=== PATIENT | male | born 1995 | race Caucasian/White ===

== ENCOUNTER 2017-01-15 14:59 | Emergency (ER) | payer SELFPAY ==
[2017-01-15 15:25] VITALS: BP 131/80
--- NOTE | 2017-01-15 16:30 | ER Document Report ---
HPI - HPI Pain Level: 4 Notes: Patient is a 21-year-old male with a history of pilonidal cyst and recurrent abscesses to the area who presents the ED complaining of another abscess. Patient states that this abscess has been growing over the last couple days and is painful, swollen, and red. He has not noticed any obvious discharge. He has not noticed any obvious streaking. Patient states that it hurts worse when he sitting down. Otherwise he still eating and drinking I difficulties. He is having normal urinations and normal bowel movements. He denies any history of MRSA. Patient states that he has had surgery on the pilonidal cyst in the past , but they are unable to get it all out for patient. Patient states he has an allergy to penicillins. Denies any other significant past medical history. Denies any IV drug use or smoking. Denies any headache, fever, URI, sore throat , chest pain, palpitations, syncope, cough, shortness of breath, wheeze, dyspnea , abdominal pain, nausea/vomiting/diarrhea, urinary retention, dysuria, hematuria, loss of control of bowel or bladder. - ROS Notes: REVIEW OF SYSTEMS: CONSTITUTIONAL : Denies fever, chills, or sweats. Denies recent illness. EENT: Denies eye, ear, throat, or mouth pain or symptoms. Denies nasal or sinus congestion or discharge. Denies throat, tongue, or mouth swelling or difficulty swallowing. CARDIOVASCULAR: Denies chest pain. Denies palpitations or racing or irregular heart beat. Denies ankle edema. RESPIRATORY: Denies cough, cold, or chest congestion. Denies shortness of breath, difficulty breathing, or wheezing. GASTROINTESTINAL: Denies abdominal pain or distention. Denies nausea, vomiting , or diarrhea. Denies blood in vomitus, stools, or per rectum. Denies black, tarry stools. Denies constipation. GENITOURINARY: Denies difficulty urinating, painful urination, burning, frequency, blood in urine, or discharge. MUSCULOSKELETAL: Denies back or neck pain or stiffness. Denies joint pain or swelling. SKIN: see hpi NEUROLOGICAL: Denies confusion or altered mental status. Denies passing out or loss of consciousness. Denies dizziness or lightheadedness. Denies headache. Denies weakness or paralysis or loss of use of either side. Denies problems with gait or speech. Denies sensory loss, numbness, or tingling. ALL OTHER SYSTEMS REVIEWED AND NEGATIVE. Dictation was performed using [employer] voice recognition software - CARDIOVASCULAR Cardiovascular: DENIES: Chest pain - DERM Skin Color: Normal Past Medical History - Social History Smoking Status: Unknown if Ever Smoked Chew tobacco use (# tins/day): No Frequency of alcohol use: Occasional Drug Abuse: None Family History: Reviewed & Not Pertinent Patient has suicidal ideation: No Endocrine Medical History: Reports: Hx Diabetes Mellitus Type 1 Renal/ Medical History: Denies: Hx Peritoneal Dialysis Past Surgical History: Reports: Hx Oral Surgery - wisdom teeth, Hx Tonsillectomy Vertical Provider Document - CONSTITUTIONAL Agree With Documented VS: Yes Notes: PHYSICAL EXAMINATION: GENERAL: Well-appearing, well-nourished and in no acute distress. Vitals during assessment: HR 80 LUNGS: Breath sounds clear to auscultation bilaterally and equal. No wheezes rales or rhonchi. HEART: Regular rate and rhythm without murmurs, rubs, gallops. ABDOMEN: Soft, nontender, nondistended abdomen. No guarding, no rebound. No masses appreciated. Normal bowel sounds present. No CVA tenderness bilaterally. Rectum: + abscess, erythema, induration, and tenderness w/o streaks/discharge to the rt medial buttock. The infected area extends towards the anus. Extremities: No cyanosis, clubbing, or edema b/l. Peripheral pulses 2+. Capillary refill less than 3 seconds. NEUROLOGICAL: Normal speech, normal gait. Normal sensory, motor exams PSYCH: Normal mood, normal affect. SKIN: Warm, Dry, normal turgor, no rashes or lesions noted. - INFECTION CONTROL TRAVEL OUTSIDE OF THE [place] IN LAST 30 DAYS: No - RESPIRATORY O2 Sat by Pulse Oximetry: 100 Course - Re-evaluation Re-evalutation: 01/15/17 16:43 Patient is an afebrile, well-hydrated, 21-year-old male who presents to the ED with a perirectal/pilonidal abscess. Vitals are stable. PE otherwise unremarkable at this time. General surgery was consulted, Dr. Monahan who evaluated the patient. Per general surgeon's recommendations, we will send him home with a prescription for, clindamycin to take 4 times daily 10 days with close follow-up in about 3-5 days with general surgery as he believes this is focused more with the pilonidal cyst than a true perirectal. Dr. Monahan did review these instructions with the patient as well. Conservative measures otherwise for symptoms. Keep consult/schedule an appointment with general surgery for later this week. Recheck with your PCM this week as well. Return to the ED with any worsening/concerning symptoms otherwise as reviewed in discharge. Patient is in agreement. - Vital Signs Vital signs: Temp Pulse Resp BP Pulse Ox 98.8 F 125 H 18 131/80 H 100 01/15/17 15:21 01/15/17 15:21 01/15/17 15:21 01/15/17 15:21 01/15/17 15:21 Discharge - Discharge Clinical Impression: Abscess Condition: Stable Disposition: HOME, SELF-CARE Instructions: Abscess ([facility]), Clindamycin ([facility]) Additional Instructions: Keep the skin clean and wash with soap and water Take antibiotic as directed instruction per the general surgeon otherwise Tylenol/ibuprofen as needed Epson salt soaks may help Call the general surgeon office tomorrow to schedule a follow-up within 5-7 days Recheck with your PCM this week as well Return to the ED with any worsening symptoms and/or development of fever, headache, chest pain, palpitations, syncope, shortness of breath, trouble breathing, abdominal pain, n/v/d, blood in stool/urine, loss of control of bowel /bladder, urinary retention, muscle weakness/paralysis, saddle anesthesia, numbness/tingling, red streaks, discharge, or other worsening symptoms that are concerning to you. Prescriptions: Clindamycin HCl [Cleocin 300 mg Capsule] 300 mg PO QID #40 capsule Forms: Elevated Blood Pressure Referrals: SAM ELLISON MD [ACTIVE STAFF] - Follow up in 3-5 days MENA RUELAS MD [FUR STRETCHER] - Follow up in 3-5 days TORY MONAHAN DO [FUR STRETCHER] - Follow up in 3-5 days
== END 2017-01-15 16:45 | disposition home or self-care (01) ==
LOC: ER 14:59
DX: L02.91 Cutaneous abscess, unspecified (principal); E10.9 Type 1 diabetes mellitus without complications; Z98.890 Other specified postprocedural states
CPT/HCPCS: 99283

== ENCOUNTER 2017-01-16 19:08 | Emergency (ER) | payer SELFPAY ==
[2017-01-16 19:53] VITALS: BP 131/76
--- NOTE | 2017-01-16 20:27 | ER Document Report ---
ED Suture/Wound Recheck - General Chief Complaint: Abscess Recheck Stated Complaint: POSSIBLE ABSCESS Time Seen by Provider: 01/16/17 20:24 Mode of Arrival: Ambulatory Information source: Patient Notes: 20-year-old male presented to ED for recheck his abscess on the coccyx. He states he was seen yesterday and today he had blood running down his leg. TRAVEL OUTSIDE OF THE [place] IN LAST 30 DAYS: No - HPI Previous ED treatment: Pilonidal cyst Antibiotics given previously: Prescription Quality of pain: Throbbing Severity: Severe Pain Level: 5 Symptoms since procedure: Drainage - From his pilonidal cyst Exacerbated by: Sitting, Movement, Walking Relieved by: Denies - Related Data Allergies/Adverse Reactions: acetaminophen [From Vicodin] Allergy (Verified 01/16/17 19:52) Hives hydrocodone [From Vicodin] Allergy (Verified 01/16/17 19:52) Hives ibuprofen Allergy (Verified 01/16/17 19:52) Hives pcn Allergy (Uncoded 01/16/17 19:52) Hives Past Medical History - General Information source: Patient - Social History Smoking Status: Current Every Day Smoker Cigarette use (# per day): Yes Drug Abuse: None Family History: Reviewed & Not Pertinent Patient has suicidal ideation: No Patient has homicidal ideation: No - Past Medical History Cardiac Medical History: Reports: None Pulmonary Medical History: Reports: None EENT Medical History: Reports: None Neurological Medical History: Reports: None Endocrine Medical History: Reports: Hx Diabetes Mellitus Type 1 Renal/ Medical History: Reports: None Malignancy Medical History: Reports None GI Medical History: Reports: None Musculoskeltal Medical History: Reports None Skin Medical History: Reports None Psychiatric Medical History: Reports: None Traumatic Medical History: Reports: None Infectious Medical History: Reports: None Past Surgical History: Reports: Hx Oral Surgery - wisdom teeth, Hx Tonsillectomy Review of Systems - Review of Systems Constitutional: No symptoms reported EENT: No symptoms reported Cardiovascular: No symptoms reported Respiratory: No symptoms reported Gastrointestinal: No symptoms reported Genitourinary: No symptoms reported Male Genitourinary: No symptoms reported Musculoskeletal: No symptoms reported Skin: Other - pilonidal cyst and abscess to cleft draining Hematologic/Lymphatic: No symptoms reported Neurological/Psychological: No symptoms reported -: Yes All other systems reviewed and negative Physical Exam - Vital signs Vitals: Temp Pulse Resp BP Pulse Ox 99.5 F 104 H 20 131/76 H 98 01/16/17 19:52 01/16/17 19:52 01/16/17 19:52 01/16/17 19:52 01/16/17 19:52 Interpretation: Normal - General General appearance: Appears well, Alert - HEENT Head: Normocephalic, Atraumatic Eyes: Normal Pupils: PERRL - Respiratory Respiratory status: No respiratory distress Chest status: Nontender Breath sounds: Normal Chest palpation: Normal - Cardiovascular Rhythm: Regular Heart sounds: Normal auscultation Murmur: No - Abdominal Inspection: Normal Distension: No distension Bowel sounds: Normal Tenderness: Nontender Organomegaly: No organomegaly - Back Back: Normal, Nontender. No: Deformity/step-off, CVA tenderness, Vertebra tenderness, Scars, Scoliosis - Extremities General upper extremity: Normal inspection, Nontender, Normal color, Normal ROM , Normal temperature General lower extremity: Normal inspection, Nontender, Normal color, Normal ROM , Normal temperature, Normal weight bearing. No: River's sign - Neurological Neuro grossly intact: Yes Cognition: Normal Orientation: AAOx4 Susie Coma Scale Eye Opening: Spontaneous Susie Coma Scale Verbal: Oriented [place] Coma Scale Motor: Obeys Commands Susie Coma Scale Total: 15 Speech: Normal Motor strength normal: LUE, RUE, LLE, RLE Sensory: Normal - Psychological Associated symptoms: Normal affect, Normal mood - Skin Skin Temperature: Warm Skin Moisture: Dry Skin Color: Normal Skin irregularity: Abscess Location of irregularity: Other - pilonidal abscess Irregularity with: Swelling, Tenderness, Inflammation, Weeping Course - Re-evaluation Re-evalutation: 01/16/17 21:27 Patient was instructed on care of his pilonidal cyst. He was given pads to wear and mesh panties to protect his clothing. Patient was instructed to continue his antibiotics as ordered to take his Tylenol is ordered and to follow -up with the surgeons as he had previously been ordered. Patient is allergic to ibuprofen and hydrocodone. - Vital Signs Vital signs: Temp Pulse Resp BP Pulse Ox 99.5 F 104 H 20 131/76 H 98 01/16/17 19:52 01/16/17 19:52 01/16/17 19:52 01/16/17 19:52 01/16/17 19:52 Discharge - Discharge Clinical Impression: Pilonidal cyst with abscess Condition: Stable Disposition: HOME, SELF-CARE Additional Instructions: Continue your antibiotics as ordered. Continue using your sitz bath as ordered. Continue taking her Tylenol as ordered. Wear a pad in the your pants due to the drainage from your abscess. Follow-up with the surgeon as you were instructed. FOLLOW-UP CARE: If you have been referred to a physician for follow-up care, call the physician s office for an appointment as you were instructed or within the next two days. If you experience worsening or a significant change in your symptoms, notify the physician immediately or return to the Emergency Department at any time for re-evaluation. Forms: Elevated Blood Pressure, Smoking Cessation Education, Return to Work Referrals: [facility] [Provider Group] - Follow up as needed
== END 2017-01-16 20:38 | disposition home or self-care (01) ==
LOC: ER 19:08
DX: L05.01 Pilonidal cyst with abscess (principal); F17.210 Nicotine dependence, cigarettes, uncomplicated; E10.9 Type 1 diabetes mellitus without complications; Z88.6 Allergy status to analgesic agent; Z88.0 Allergy status to penicillin
CPT/HCPCS: 99282

== ENCOUNTER 2017-03-14 14:38 | Emergency (ER) | payer SELFPAY ==
[2017-03-14 14:47] VITALS: BP 131/90
--- NOTE | 2017-03-14 15:36 | ER Document Report ---
ED General - General Chief Complaint: Medication Refill Stated Complaint: MEDICATION REFILL Time Seen by Provider: 03/14/17 15:32 Mode of Arrival: Ambulatory Information source: Patient Notes: Patient presents stating that he needs help with his insulin pump. He states that he recently moved here and has no insurance. He states that he has no prescription to get the insulin for the pump or for the supplies. He denies any other problems. No nausea no vomiting no diarrhea. No rashes. No fevers. No trouble with urination or bowel movements. TRAVEL OUTSIDE OF THE [place] IN LAST 30 DAYS: No - Related Data Allergies/Adverse Reactions: acetaminophen [From Vicodin] Allergy (Verified 03/14/17 14:43) Hives hydrocodone [From Vicodin] Allergy (Verified 03/14/17 14:43) Hives ibuprofen Allergy (Verified 03/14/17 14:43) Hives pcn Allergy (Uncoded 03/14/17 14:43) Hives Past Medical History - General Information source: Patient - Social History Smoking Status: Current Every Day Smoker Chew tobacco use (# tins/day): No Frequency of alcohol use: Rare Drug Abuse: None Family History: Reviewed & Not Pertinent Patient has suicidal ideation: No Patient has homicidal ideation: No Endocrine Medical History: Reports: Hx Diabetes Mellitus Type 1 Renal/ Medical History: Denies: Hx Peritoneal Dialysis Past Surgical History: Reports: Hx Oral Surgery - wisdom teeth, Hx Tonsillectomy - Immunizations Hx Diphtheria, Pertussis, Tetanus Vaccination: Yes Review of Systems - Review of Systems Constitutional: denies: Chills, Fever Cardiovascular: denies: Chest pain, Palpitations Respiratory: denies: Cough, Short of breath Physical Exam - Vital signs Vitals: Temp Pulse Resp BP Pulse Ox 98.5 F 89 16 131/90 H 100 03/14/17 14:43 03/14/17 14:43 03/14/17 14:43 03/14/17 14:43 03/14/17 14:43 Interpretation: Hypertensive - General General appearance: Appears well, Alert In distress: None - Respiratory Respiratory status: No respiratory distress Chest status: Nontender Breath sounds: Normal Chest palpation: Normal - Cardiovascular Rhythm: Regular Heart sounds: Normal auscultation Murmur: No - Abdominal Inspection: Normal Distension: No distension Bowel sounds: Normal Tenderness: Nontender Organomegaly: No organomegaly - Neurological Neuro grossly intact: Yes Cognition: Normal Orientation: AAOx4 Susie Coma Scale Eye Opening: Spontaneous [place] Coma Scale Verbal: Oriented Susie Coma Scale Motor: Obeys Commands Susie Coma Scale Total: 15 Speech: Normal Motor strength normal: LUE, RUE, LLE, RLE Sensory: Normal - Psychological Associated symptoms: Normal affect, Normal mood - Skin Skin Temperature: Warm Skin Moisture: Dry Skin Color: Normal Course - Re-evaluation Re-evalutation: 03/14/17 15:[address] Lambert at the [facility]. He states that if patient comes over right now he will right prescription for the patient. - Vital Signs Vital signs: Temp Pulse Resp BP Pulse Ox 98.5 F 89 16 131/90 H 100 03/14/17 14:43 03/14/17 14:43 03/14/17 14:43 03/14/17 14:43 03/14/17 14:43 Discharge - Discharge Clinical Impression: Medication refill Condition: Stable Disposition: HOME, SELF-CARE Additional Instructions: Please go straight to the [facility]. Forms: Elevated Blood Pressure
== END 2017-03-14 15:38 | disposition home or self-care (01) ==
LOC: ER 14:38
DX: Z76.0 Encounter for issue of repeat prescription (principal); E10.9 Type 1 diabetes mellitus without complications; Z96.41 Presence of insulin pump (external) (internal); F17.200 Nicotine dependence, unspecified, uncomplicated; Z88.5 Allergy status to narcotic agent; Z88.6 Allergy status to analgesic agent; Z88.0 Allergy status to penicillin
CPT/HCPCS: 99281

== ENCOUNTER → 2017-03-20 | Outpatient (CLI) | payer OTHER ==
[2017-03-20 13:54] LABS: ALANINE AMINOTRANSFERASE 29 U/L (21-72); ALBUMIN 4.4 g/dL (3.5-5.0); ALKALINE PHOSPHATASE 103 U/L (38-126); ANION GAP 15 (5-19); ASPARTATE AMINO TRANSFERASE 19 U/L (17-59); BILIRUBIN,DIRECT 0.3 mg/dL (0.0-0.4); BILIRUBIN,TOTAL 0.5 mg/dL (0.2-1.3); BLOOD UREA NITROGEN 18 mg/dL (7-20); CALCIUM 9.8 mg/dL (8.4-10.2); CARBON DIOXIDE 28 mmol/L (22-30); CHLORIDE 99 mmol/L (98-107); CHOLESTEROL 172.75 mg/dL (0-200); CREATININE RESULT 0.62 mg/dL (0.52-1.25); Direct HDL 44 mg/dL (>40); GLUCOSE 177 mg/dL (75-110); POTASSIUM 4.4 mmol/L (3.6-5.0); SODIUM 141.6 mmol/L (137-145); TOTAL PROTEIN 7.2 g/dL (6.3-8.2); TRIGLYCERIDES 125 mg/dL (<150)
[2017-03-20 14:04] LABS: DIRECT LDL 110 mg/dL (<100)
== END ==
LOC: CCC 12:05
DX: E10.8 Type 1 diabetes mellitus with unspecified complications (principal)
CPT/HCPCS: 36415; 80053; 80061; 83036

== ENCOUNTER 2017-05-24 19:35 | Emergency (ER) | payer SELFPAY ==
[2017-05-24] MEDS ORDERED: NORMAL SALINE 1000 ML 1,000 ML IV ONE ×2 (19:51→22:16)
--- NOTE | 2017-05-24 19:54 | ER Document Report ---
ED Medical Screen (RME) - General Chief Complaint: High Blood Sugar Stated Complaint: BLOOD SUGAR ISSUES Time Seen by Provider: 05/24/17 19:51 Mode of Arrival: Ambulatory Information source: Patient Notes: Patient is a known insulin-dependent diabetic who reports that his blood sugar has been reading high this evening. Patient is on a home insulin pump that sets automatically and he is uncertain what the settings are at this time. Patient does complain of some chest pain but denies any cough or cold symptoms. Patient denies any fever, nausea, vomiting or diarrhea. hx: Diabetes, asthma TRAVEL OUTSIDE OF THE [place] IN LAST 30 DAYS: No - Related Data Allergies/Adverse Reactions: acetaminophen [From Vicodin] Allergy (Verified 05/24/17 19:39) Hives hydrocodone [From Vicodin] Allergy (Verified 05/24/17 19:39) Hives ibuprofen Allergy (Verified 05/24/17 19:39) Hives pcn Allergy (Uncoded 05/24/17 19:39) Hives Past Medical History Endocrine Medical History: Reports: Hx Diabetes Mellitus Type 1 Renal/ Medical History: Denies: Hx Peritoneal Dialysis Past Surgical History: Reports: Hx Oral Surgery - wisdom teeth, Hx Tonsillectomy - Immunizations Hx Diphtheria, Pertussis, Tetanus Vaccination: Yes Physical Exam - Respiratory Respiratory status: No respiratory distress Chest status: Tender Breath sounds: No: Nonproductive cough, Productive cough
--- NOTE | 2017-05-24 20:48 | RADIOLOGY REPORT (SQ) ---
EXAM DESCRIPTION: CHEST PA/LAT COMPLETED DATE/TIME: 05/24/2017 8:34 pm REASON FOR STUDY: cp COMPARISON: None. EXAM PARAMETERS: NUMBER OF VIEWS: two views TECHNIQUE: Digital Frontal and Lateral radiographic views of the chest acquired. RADIATION DOSE: NA LIMITATIONS: none FINDINGS: LUNGS AND PLEURA: No opacities, masses or pneumothorax. No pleural effusion. MEDIASTINUM AND HILAR STRUCTURES: No masses or contour abnormalities. HEART AND VASCULAR STRUCTURES: Heart normal size. No evidence for failure. BONES: No acute findings. HARDWARE: None in the chest. OTHER: No other significant finding. IMPRESSION: NO SIGNIFICANT RADIOGRAPHIC FINDING IN THE CHEST. TECHNICAL DOCUMENTATION: JOB ID: [id number] [place]-[id number] 2010 [employer]- All Rights Reserved
[2017-05-24 21:27] LABS: ABSOLUTE EOSINOPHILS # (AUTO) 0.3 10^3/uL (0.0-0.6); ABSOLUTE LYMPHOCYTES (AUTO) 2.1 10^3/uL (0.5-4.7); ABSOLUTE MONOCYTES (AUTO) 0.4 10^3/uL (0.1-1.4); ABSOLUTE NEUT (AUTO) 5.7 10^3/uL (1.7-8.2); BASOPHILS % (AUTO) 0.3 % (0-2); HEMATOCRIT 42.9 % (37.9-51.0); HEMOGLOBIN 14.8 g/dL (13.5-17.0); LYMPHOCYTES % (AUTO) 24.2 % (13-45); MEAN CORPUSCULAR HGB CONC 34.5 g/dL (32.0-36.0); MEAN CORPUSCULAR VOLUME 93 fl (80-97); PLATELET COUNT 186 10^3/uL (150-450); RED BLOOD COUNT 4.62 10^6/uL (4.35-5.55); SEGMENTED NEUTROPHILS % (AUTO) 66.5 % (42-78); TOTAL CELLS COUNTED % (AUTO) 100 %; WHITE BLOOD COUNT 8.6 10^3/uL (4.0-10.5)
[2017-05-24 21:33] LABS: VENOUS BLOOD BASE EXCESS 3.8 mmol/L; VENOUS BLOOD HCO3 30.3 mmol/L (20-32); VENOUS BLOOD PCO2 52.9 mmHg (35-63); VENOUS BLOOD PH 7.38 (7.30-7.42)
[2017-05-24 21:33] LABS: APPEARANCE,URINE CLEAR; BILIRUBIN,URINE NEGATIVE (NEGATIVE); COLOR,URINE COLORLESS; GLUCOSE, URINE >=500 mg/dL (NEGATIVE); KETONES,URINE TRACE mg/dL (NEGATIVE); LEUKOCYTE ESTERASE,URINE NEGATIVE (NEGATIVE); NITRITE,URINE NEGATIVE (NEGATIVE); PROTEIN,URINE NEGATIVE (NEGATIVE); URINE SPECIFIC GRAVITY 1.024; UROBILINOGEN,URINE NEGATIVE mg/dL (<2.0)
[2017-05-24 21:51] LABS: ALANINE AMINOTRANSFERASE 27 U/L (21-72); ALBUMIN 4.4 g/dL (3.5-5.0); ALKALINE PHOSPHATASE 128 U/L (38-126); ANION GAP 11 (5-19); ASPARTATE AMINO TRANSFERASE 19 U/L (17-59); BILIRUBIN,DIRECT 0.2 mg/dL (0.0-0.4); BILIRUBIN,TOTAL 0.5 mg/dL (0.2-1.3); BLOOD UREA NITROGEN 17 mg/dL (7-20); CALCIUM 9.7 mg/dL (8.4-10.2); CARBON DIOXIDE 29 mmol/L (22-30); CHLORIDE 92 mmol/L (98-107); LIPASE 36.6 U/L (23-300); POTASSIUM 4.3 mmol/L (3.6-5.0); SODIUM 132.1 mmol/L (137-145); TOTAL PROTEIN 7.2 g/dL (6.3-8.2)
[2017-05-24 22:01] LABS: GLUCOSE 618 mg/dL (75-110)
[2017-05-25 00:50] VITALS: BP 122/78
--- NOTE | 2017-05-25 00:57 | ER Document Report ---
ED Blood Sugar Problem - General Chief Complaint: High Blood Sugar Stated Complaint: BLOOD SUGAR ISSUES Time Seen by Provider: 05/24/17 19:51 Mode of Arrival: Ambulatory Notes: Patient is a 21 year old known insulin-dependent diabetic who reports that his blood sugar has been reading high this evening. Patient is on a home insulin pump that sets automatically and he is uncertain what the settings are at this time. He has checked the battery and it is recent and not low. Patient states that he actually moved his pump to a new location early today (he does this intermittently), he is unsure if this was the issue. Patient states that he has received 2 bags of IV fluids now, states that he felt lightheaded and strange sensation in his chest earlier but now he feels fine. He denies any nausea or vomiting today. He states last time he was hospitalized for DKA was so many years ago he is not even sure what it was. He is new to the area but he is established with a primary care provider. TRAVEL OUTSIDE OF THE [place] IN LAST 30 DAYS: No - Related Data Allergies/Adverse Reactions: acetaminophen [From Vicodin] Allergy (Verified 05/24/17 19:39) Hives hydrocodone [From Vicodin] Allergy (Verified 05/24/17 19:39) Hives ibuprofen Allergy (Verified 05/24/17 19:39) Hives pcn Allergy (Uncoded 05/24/17 19:39) Hives Past Medical History - General Information source: Patient - Social History Smoking Status: Current Every Day Smoker Frequency of alcohol use: None Drug Abuse: None Family History: Reviewed & Not Pertinent Patient has suicidal ideation: No Patient has homicidal ideation: No Endocrine Medical History: Reports: Hx Diabetes Mellitus Type 1 Renal/ Medical History: Denies: Hx Peritoneal Dialysis Past Surgical History: Reports: Hx Oral Surgery - wisdom teeth, Hx Tonsillectomy - Immunizations Hx Diphtheria, Pertussis, Tetanus Vaccination: Yes Review of Systems - Review of Systems Constitutional: See HPI EENT: No symptoms reported Cardiovascular: No symptoms reported Respiratory: No symptoms reported Gastrointestinal: No symptoms reported Genitourinary: No symptoms reported Male Genitourinary: No symptoms reported Musculoskeletal: No symptoms reported Skin: No symptoms reported Hematologic/Lymphatic: No symptoms reported Neurological/Psychological: No symptoms reported Physical Exam - Vital signs Vitals: Temp Pulse Resp BP Pulse Ox 98.0 F 92 18 130/80 H 100 05/24/17 19:52 05/24/17 19:52 05/24/17 19:52 05/24/17 19:52 05/24/17 19:52 Interpretation: Normal - General General appearance: Appears well, Alert In distress: None - HEENT Head: Normocephalic, Atraumatic Eyes: Normal Pupils: PERRL - Respiratory Respiratory status: No respiratory distress Chest status: Nontender Breath sounds: Normal Chest palpation: Normal - Cardiovascular Rhythm: Regular Heart sounds: Normal auscultation Murmur: No - Abdominal Inspection: Other - Insulin pump in place in the right lower abdomen Distension: No distension Bowel sounds: Normal Tenderness: Nontender Organomegaly: No organomegaly - Back Back: Normal, Nontender - Extremities General upper extremity: Normal inspection, Nontender, Normal color, Normal ROM , Normal temperature General lower extremity: Normal inspection, Nontender, Normal color, Normal ROM , Normal temperature, Normal weight bearing. No: River's sign - Neurological Neuro grossly intact: Yes Cognition: Normal Orientation: AAOx4 Susie Coma Scale Eye Opening: Spontaneous [place] Coma Scale Verbal: Oriented Susie Coma Scale Motor: Obeys Commands Susie Coma Scale Total: 15 Speech: Normal Motor strength normal: LUE, RUE, LLE, RLE Sensory: Normal - Psychological Associated symptoms: Normal affect, Normal mood - Skin Skin Temperature: Warm Skin Moisture: Dry Skin Color: Normal Course - Re-evaluation Re-evalutation: CBC unremarkable, chemistry shows normal anion gap, normal bicarbonate, venous blood gas does not show acidosis. Patient has not been given insulin here, I checked his pump, it is in place, and appears to be infusing insulin. Patient was given 2 IV fluid boluses. Blood sugar downtrending dramatically. Pump definitely appears to be working. Patient is very happy with this. Offered him food, patient is very familiar with his pump and is a very well-controlled diabetic, he states he will follow- up with primary care and return if he worsens. - Vital Signs Vital signs: Temp Pulse Resp BP Pulse Ox 98.6 F 78 16 122/78 100 05/25/17 00:49 05/25/17 00:49 05/25/17 00:49 05/25/17 00:49 05/25/17 00:49 - Laboratory Result Diagrams: 05/24/17 20:55 05/24/17 20:55 Laboratory results interpreted by me: 05/24/17 05/24/17 05/24/17 20:45 20:55 22:39 Sodium 132.1 L Chloride 92 L Glucose 618 H* POC Glucose 417 H* Alkaline Phosphatase 128 H Urine Glucose (UA) >=500 H Urine Ketones TRACE H 05/25/17 00:43 Sodium Chloride Glucose POC Glucose 114 H Alkaline Phosphatase Urine Glucose (UA) Urine Ketones Discharge - Discharge Clinical Impression: Hyperglycemia due to type 1 diabetes mellitus Condition: Stable Disposition: HOME, SELF-CARE Additional Instructions: No evidence of diabetic ketoacidosis is seen on your evaluation today. Continue rehydration, your pump appears to be working again. Follow-up with primary care. Return for any concerning or worsening symptoms including lightheadedness, vomiting, or any other concerning symptoms. Forms: Return to Work
== END 2017-05-25 01:05 | disposition home or self-care (01) ==
LOC: ER 19:35
DX: E10.65 Type 1 diabetes mellitus with hyperglycemia (principal); Z79.4 Long term (current) use of insulin; R42 Dizziness and giddiness; F17.200 Nicotine dependence, unspecified, uncomplicated
CPT/HCPCS: 99285; 96360; 96361; 36415; 82962; 83690; 85025; 80053; 81001; 82803; 71046; J7030

== ENCOUNTER 2017-06-01 18:52 | Observation (INO) | payer BC ==
--- NOTE | 2017-06-01 20:19 | ER Document Report ---
ED Medical Screen (RME) - General Chief Complaint: Abscess Stated Complaint: BUTTOCKS PAIN Time Seen by Provider: 06/01/17 20:18 Mode of Arrival: Ambulatory Information source: Patient Notes: Patient is a 21-year-old male diabetic who presents to the ER today for a pilonidal cyst. Patient states he has had a surgically drained before and is here to get it drained again today. He states this was started about a week ago. He states it is hard and painful and he cannot sit down. TRAVEL OUTSIDE OF THE [place] IN LAST 30 DAYS: No - Related Data Allergies/Adverse Reactions: acetaminophen [From Vicodin] Allergy (Verified 05/24/17 19:39) Hives hydrocodone [From Vicodin] Allergy (Verified 05/24/17 19:39) Hives ibuprofen Allergy (Verified 05/24/17 19:39) Hives pcn Allergy (Uncoded 05/24/17 19:39) Hives Past Medical History - General Information source: Patient - Social History Chew tobacco use (# tins/day): No Frequency of alcohol use: None Drug Abuse: None Endocrine Medical History: Reports: Hx Diabetes Mellitus Type 1 Renal/ Medical History: Denies: Hx Peritoneal Dialysis Past Surgical History: Reports: Hx Oral Surgery - wisdom teeth, Hx Tonsillectomy - Immunizations Hx Diphtheria, Pertussis, Tetanus Vaccination: Yes Review of Systems - Review of Systems Skin: See HPI Physical Exam - Vital signs Vitals: Temp Pulse Resp BP Pulse Ox 99.4 F 114 H 19 146/78 H 99 06/01/17 19:22 06/01/17 19:22 06/01/17 19:22 06/01/17 19:22 06/01/17 19:22 - Notes Notes: PHYSICAL EXAMINATION: GENERAL: Uncomfortable appearing, will not sit down, but in no acute distress. Course - Vital Signs Vital signs: Temp Pulse Resp BP Pulse Ox 99.4 F 114 H 19 146/78 H 99 06/01/17 19:22 06/01/17 19:22 06/01/17 19:22 06/01/17 19:22 06/01/17 19:22
[2017-06-01 21:21] LABS: ABSOLUTE EOSINOPHILS # (AUTO) 0.4 10^3/uL (0.0-0.6); ABSOLUTE LYMPHOCYTES (AUTO) 1.6 10^3/uL (0.5-4.7); ABSOLUTE MONOCYTES (AUTO) 0.7 10^3/uL (0.1-1.4); ABSOLUTE NEUT (AUTO) 8.8 10^3/uL (1.7-8.2); BASOPHILS % (AUTO) 0.1 % (0-2); EOSINOPHILS % (AUTO) 3.7 % (0-6); HEMATOCRIT 41.1 % (37.9-51.0); HEMOGLOBIN 14.2 g/dL (13.5-17.0); LYMPHOCYTES % (AUTO) 14.3 % (13-45); MEAN CORPUSCULAR HEMOGLOBIN 32.1 pg (27.0-33.4); MEAN CORPUSCULAR HGB CONC 34.6 g/dL (32.0-36.0); MEAN CORPUSCULAR VOLUME 93 fl (80-97); MONOCYTES % (AUTO) 5.9 % (3-13); PLATELET COUNT 218 10^3/uL (150-450); RED BLOOD COUNT 4.44 10^6/uL (4.35-5.55); RED CELL DISTRIBUTION WIDTH 13.3 % (11.5-14.0); TOTAL CELLS COUNTED % (AUTO) 100 %; WHITE BLOOD COUNT 11.5 10^3/uL (4.0-10.5)
[2017-06-01 21:42] LABS: ALANINE AMINOTRANSFERASE 31 U/L (21-72); ALBUMIN 4.4 g/dL (3.5-5.0); ALKALINE PHOSPHATASE 116 U/L (38-126); ANION GAP 11 (5-19); ASPARTATE AMINO TRANSFERASE 19 U/L (17-59); BILIRUBIN,DIRECT 0.4 mg/dL (0.0-0.4); BILIRUBIN,TOTAL 0.4 mg/dL (0.2-1.3); BLOOD UREA NITROGEN 13 mg/dL (7-20); CALCIUM 10.1 mg/dL (8.4-10.2); CARBON DIOXIDE 29 mmol/L (22-30); CHLORIDE 99 mmol/L (98-107); GLUCOSE 298 mg/dL (75-110); POTASSIUM 4.3 mmol/L (3.6-5.0); SODIUM 139.4 mmol/L (137-145); TOTAL PROTEIN 7.4 g/dL (6.3-8.2)
[2017-06-01] MEDS ORDERED: LIDOCAINE 1% INJ-PF (10 MG/ML) 30 ML SDV INJ ONE (22:11)
[2017-06-01] MEDS ORDERED: ONDANSETRON 4 MG TAB.RAPDIS PO ONE (23:29)
--- NOTE | 2017-06-02 01:44 | RADIOLOGY REPORT (SQ) ---
EXAM DESCRIPTION: CT ABD/PELVIS WITH IV ONLY COMPLETED DATE/TIME: 06/02/2017 1:10 am REASON FOR STUDY: pilonidal/ deep? Coccyx pain. Pilonidal cyst on the tail bone. COMPARISON: None. TECHNIQUE: CT scan of the abdomen and pelvis performed using helical scanning technique with dynamic intravenous contrast injection. No oral contrast. Images reviewed with lung, soft tissue, and bone windows. Reconstructed coronal and sagittal MPR images reviewed. Delayed images for evaluation of the urinary system also acquired. All images stored on PACS. All CT scanners at this facility use dose modulation, iterative reconstruction, and/or weight based d osing when appropriate to reduce radiation dose to as low as reasonably achievable (ALARA). [facility]: Dose Right [facility]: CareDose [facility]: Dose Right [facility]: Teradose 4D [facility]: [employer] CONTRAST TYPE AND DOSE: contrast/concentration: Isovue 370.00 mg/ml; Total Contrast Delivered: 63.0 ml; Total Saline Delivered: 65.0 ml RENAL FUNCTION: Creatinine 0.57 RADIATION DOSE: CT Rad equipment meets quality standard of care and radiation dose reduction techniq ues were employed. CTDIvol: 9.6 - 14.4 mGy. DLP: 1344 mGy-cm.. LIMITATIONS: Patient was scanned prone due to pain. FINDINGS: LOWER CHEST: No consolidation or pleural effusion. LIVER: Normal size. No masses. No dilated ducts. SPLEEN: Normal size. PANCREAS: No significant calcifications. No adjacent inflammation or peripancreatic fluid collections . Pancreatic duct not dilated. GALLBLADDER: No identified stones by CT criteria. No inflammatory changes to suggest cholecystitis. ADRENAL GLANDS: No significant masses or asymmetry. RIGHT KIDNEY AND URETER: Right renal cysts measuring up to 2.1 cm. No significant calcifications. No hydronephrosis or hydroureter. LEFT KIDNEY AND URETER: No significant calcifications. No hydronephrosis or hydroureter. AORTA AND VESSELS: No abdominal aortic aneurysm. RETROPERITONEUM: No retroperitoneal hemorrhage or masses. BOWEL AND PERITONEAL CAVITY: No dilated bowel loops or inflammatory changes. No free fluid or free ai r. APPENDIX: Normal. PELVIS: The urinary bladder is distended. No pelvic mass. No free fluid. ABDOMINAL WALL: Radiopaque piercing at the umbilicus. BONES: No significant or acute findings. OTHER: Loculated peripherally enhancing fluid collection in the soft tissue posterior to the coccyx e xtending to the right side measuring approximately 3.0 x 4.3 x 5.6 cm. There is adjacent soft tissue stranding. IMPRESSION: Loculated peripherally enhancing fluid collection with inflammatory changes in the soft tissues posterior to the coccyx, suggestive of pilonidal abscess formation. TECHNICAL DOCUMENTATION: JOB ID: [id number] PA-64 Quality ID # [id number]: Final reports with documentation of one or more dose reduction techniques (e.g., Au tomated exposure control, adjustment of the mA and/or kV according to patient size, use of iterative reconstruction technique) 2010 [employer]- All Rights Reserved
--- NOTE | 2017-06-02 02:09 | ER Document Report ---
ED Skin Rash/Insect Bite/Abscs - General Chief Complaint: Abscess Stated Complaint: BUTTOCKS PAIN Time Seen by Provider: 06/01/17 20:18 Mode of Arrival: Ambulatory Information source: Patient Notes: Patient is a 21-year-old male who presents to the ER today for pilonidal abscess. Patient states that it started about 3 days ago to the left buttocks and has migrated to the right buttocks at the top of the gluteal crease. Patient states that he has had surgery for his pilonidal once and has had it drained 5 times either an in office or in emergency department. Patient denies any fevers, chills or drainage. He states that it hurts so badly that he cannot sit on his buttocks. TRAVEL OUTSIDE OF THE [place] IN LAST 30 DAYS: No - Related Data Allergies/Adverse Reactions: acetaminophen [From Vicodin] Allergy (Verified 05/24/17 19:39) Hives hydrocodone [From Vicodin] Allergy (Verified 05/24/17 19:39) Hives ibuprofen Allergy (Verified 05/24/17 19:39) Hives pcn Allergy (Uncoded 05/24/17 19:39) Hives Past Medical History - General Information source: Patient - Social History Smoking Status: Current Every Day Smoker Chew tobacco use (# tins/day): No Frequency of alcohol use: None Drug Abuse: None Family History: Reviewed & Not Pertinent Patient has suicidal ideation: No Patient has homicidal ideation: No Endocrine Medical History: Reports: Hx Diabetes Mellitus Type 1 Renal/ Medical History: Denies: Hx Peritoneal Dialysis Past Surgical History: Reports: Hx Oral Surgery - wisdom teeth, Hx Tonsillectomy - Immunizations Hx Diphtheria, Pertussis, Tetanus Vaccination: Yes Review of Systems - Review of Systems Constitutional: No symptoms reported EENT: No symptoms reported Cardiovascular: No symptoms reported Respiratory: No symptoms reported Gastrointestinal: No symptoms reported Genitourinary: No symptoms reported Male Genitourinary: No symptoms reported Musculoskeletal: No symptoms reported Skin: See HPI Hematologic/Lymphatic: No symptoms reported Neurological/Psychological: No symptoms reported Physical Exam - Vital signs Vitals: Temp Pulse Resp BP Pulse Ox 99.4 F 114 H 19 146/78 H 99 06/01/17 19:22 06/01/17 19:22 06/01/17 19:22 06/01/17 19:22 06/01/17 19:22 - Notes Notes: PHYSICAL EXAMINATION: GENERAL: Uncomfortable appearing, but in no acute distress. HEAD: Atraumatic, normocephalic. EYES: Pupils equal round and reactive to light, extraocular movements intact, sclera anicteric, conjunctiva are normal. NECK: Normal range of motion, supple without lymphadenopathy LUNGS: CTAB and equal. No wheezes rales or rhonchi. HEART: Regular rate and rhythm without murmurs EXTREMITIES: Normal range of motion, no pitting edema. No cyanosis. NEUROLOGICAL: Cranial nerves grossly intact. Normal sensory/motor exams. PSYCH: Normal mood, normal affect. SKIN: Warm, Dry, normal turgor, erythema and induration, fluctuance to left buttock at the tip of the gluteal crease, tender and warm Course - Re-evaluation Re-evalutation: 06/02/17 02:29 Patient has a mildly elevated white blood cell count, incision and drainage at the greatest area of fluctuance and induration was attempted, however I did not relieve any purulence. At this time Dr. Fernando was consulted, surgeon scientific publications editor, who advises a CAT scan to further evaluate pilonidal abscess. CT reports a loculated peripherally enhancing fluid collection 3 x 4.3 x 5.6 cm with inflammatory changes in the soft tissues posterior to the coccyx. Dr. Lipscomb , surgeon scientific publications editor accepts pt for admission to take to OR in the morning to drain pilonidal. 06/02/17 06:29 06/02/17 06:34 - Vital Signs Vital signs: Temp Pulse Resp BP Pulse Ox 100.3 F 101 H 18 88/40 L 99 06/02/17 05:37 06/02/17 05:37 06/02/17 05:37 06/02/17 05:37 06/01/17 19:22 - Laboratory Result Diagrams: 06/01/17 20:59 06/01/17 20:59 Laboratory results interpreted by me: 06/01/17 06/01/17 06/01/17 20:58 20:59 20:59 WBC 11.5 H Absolute Neutrophils 8.8 H Glucose 298 H POC Glucose 255 H Discharge - Discharge Clinical Impression: Pilonidal abscess Condition: Stable Disposition: ADMITTED INPATIENT Admitting Provider: Surgicalist Unit Admitted: Surgical Floor
[2017-06-02] MEDS ORDERED: NORMAL SALINE 1000 ML 1,000 ML IV ONE (02:29)
[2017-06-02] MEDS ORDERED: MORPHINE SULFATE 10 MG/ML INJ IV ONE (02:59)
[2017-06-02] MEDS ORDERED: DEXTROSE 40% GEL 15 GM TUBE PO PRN ×2 (08:28)
[2017-06-02] MEDS ORDERED: DEXTROSE 50%-WATER 25 GM/50 ML DISP.SYRIN IV PRN ×2 (08:28)
[2017-06-02] MEDS ORDERED: GLUCAGON,HUMAN RECOMB 1 MG INJ IM PRN (08:28)
[2017-06-02] MEDS ORDERED: INSULIN GLARGINE,HUM.REC.ANLOG 1,000 UNIT/10 ML UNIT SUBCUT ONE (08:28)
[2017-06-02] MEDS ORDERED: NORMAL SALINE 1000 ML 1,000 ML IV PRN (08:59)
[2017-06-02] MEDS: OXYCODONE HCL IR 5 MG TABLET PO PRN ×2 (10:44→20:21)
[2017-06-02] MEDS: INSULIN LISPRO 100 UNIT/ML 3 ML VIAL SUBCUT PRN ×3 (12:27→23:18)
--- NOTE | 2017-06-02 13:49 | PDOC CONSULTATION ---
Consultation Consult Date: 06/02/17 Attending physician:: SAM ELLISON Consult reason:: Diabetes management perioperatively History of Present Illness Admission Date/PCP: 06/02/17 02:29 Patient complains of: History of T1DM History of Present Illness: BETTY SWENSON is a 21 year old male with history of T1DM who was admitted for management pilonidal cyst with plan for surgical removal on . Patient has a long standing history of diabetes and has an insulin pump. Patient states that he does not follow with an marketing automation analyst. He uses humolog via his pump however does not know how his daily requirement. He states that he dose not know much about pump other than replacing cartridge. States that cyst remains painful today, has not received pain medications since early AM. Denies fevers, chills, CP, SOB, abdominal pain, NV. Past Medical History Past Medical History: History of diabetes, type 1 Cardiac Medical History: Denies: None Endocrine Medical History: Reports: Diabetes Mellitus Type 1 Psychiatric Medical History: Reports: Depression Past Surgical History Past Surgical History: Reports: Tonsillectomy Social History Occupation: Works at [employer] Smoking Status: Current Every Day Smoker Frequency of Alcohol Use: None Hx Recreational Drug Use: No Drugs: None - Advance Directive Resuscitation Status: Full Code Family History Family History: Reviewed & Not Pertinent Parental Family History Reviewed: Yes Children Family History Reviewed: NA Sibling(s) Family History Reviewed.: NA Medication/Allergy Home Medications: Insulin Lispro [Humalog Insulin (Lispro) 100 unit/mL] See Protocol PUMP DAILY Allergies/Adverse Reactions: acetaminophen [From Vicodin] Allergy (Verified 05/24/17 19:39) Hives hydrocodone [From Vicodin] Allergy (Verified 05/24/17 19:39) Hives ibuprofen Allergy (Verified 05/24/17 19:39) Hives pcn Allergy (Uncoded 05/24/17 19:39) Hives Physical Exam Vital Signs: Temp Pulse Resp BP Pulse Ox 99.7 F 112 H 12 103/51 L 100 06/02/17 12:00 06/02/17 12:00 06/02/17 12:00 06/02/17 12:00 06/02/17 12:00 Intake & Output 06/01/17 06/02/17 06/03/17 06:59 06:59 06:59 Weight 57.5 kg General appearance: PRESENT: no acute distress Head exam: PRESENT: atraumatic, normocephalic Respiratory exam: PRESENT: unlabored. ABSENT: decreased breath sounds Cardiovascular exam: PRESENT: RRR GI/Abdominal exam: PRESENT: soft. ABSENT: distended Extremities exam: ABSENT: calf tenderness Neurological exam: PRESENT: alert, altered, awake, oriented to person, oriented to place, oriented to time, CN II-XII grossly intact Psychiatric exam: ABSENT: anxious Results Impressions: Abdomen/Pelvis CT 06/01/17 23:30 IMPRESSION: Loculated peripherally enhancing fluid collection with inflammatory changes in the soft tissues posterior to the coccyx, suggestive of pilonidal abscess formation. Assessment & Plan - Diagnosis (1) Type 1 diabetes mellitus Qualifiers: Diabetes mellitus complication status: without complication Qualified Code( s): E10.9 - Type 1 diabetes mellitus without complications Is this a current diagnosis for this admission?: Yes Plan: Has insulin pump however no hospital policy for pump management - Ordered q6 hours accu checks - Low dose insulin sliding scale ordered - Ordered Lantus 10U qhs, first dose this AM - Counseled about signs and symptoms of hypoglycemia - CTM (2) Pilonidal abscess Is this a current diagnosis for this admission?: Yes Plan: Admission reason - Plan for surgical removal today (2/3) - Ordered oxycodone 5mg PRN q6 hours for pain control - Time Time Spent: 30 to 50 Minutes Anticipated discharge: Home - Plan Summary Plan Summary: Per above
[2017-06-02] MEDS ORDERED: FENTANYL CITRATE INJ/PF 100 MCG/2 ML AMPUL ONE ×2 (14:28→14:29)
[2017-06-02] MEDS ORDERED: MIDAZOLAM 2 MG/2 ML INJ ONE (14:29)
[2017-06-02] MEDS ORDERED: PROPOFOL INJ 200 MG/20 ML VIAL IV ONE (14:29)
[2017-06-02] MEDS ORDERED: LIDOCAINE 2% INJ-PF (20 MG/ML) 10 ML AMPUL ONE (14:33)
[2017-06-02] MEDS ORDERED: FENTANYL CITRATE INJ/PF 100 MCG/2 ML AMPUL IV PRN ×3 (15:26)
[2017-06-02] MEDS ORDERED: DIPHENHYDRAMINE HCL 50 MG/ML VIAL IV PRN (15:26)
[2017-06-02] MEDS ORDERED: MORPHINE SULFATE 10 MG/ML INJ IV PRN (15:26)
[2017-06-02] MEDS ORDERED: PROMETHAZINE HCL INJ 25 MG/1 ML VIAL IV PRN (15:26)
[2017-06-02] MEDS ORDERED: ONDANSETRON HCL INJ/PF 4 MG/2 ML SDV IV PRN (15:26)
--- NOTE | 2017-06-02 16:16 | PDOC H&P ---
History of Present Illness Admission Date/PCP: 06/02/17 02:29 Patient complains of: painful swelling in the sacral area x 1 week History of Present Illness: This is a 21 yo M with prior history of repeated pilonidal abscess drainages over the last couple of years who presents with swelling in the pilonidal area that has been going on for [address] pelvis obtained in the area showed fluid collections in the pilonidal area. He denies fever. He has had repeated drainages in the past but never a definitive pilonidal surgery. He is diabetic. Past Medical History Cardiac Medical History: Denies: None Endocrine Medical History: Reports: Diabetes Mellitus Type 1 Psychiatric Medical History: Reports: Depression Infectious History Note: He has a history of perianal warts excised in the past. Past Surgical History Past Surgical History: Reports: Tonsillectomy, Other - Previous I&D of pilonidal abscesses. Excision of perianal warts Social History Smoking Status: Current Every Day Smoker Frequency of Alcohol Use: None Hx Recreational Drug Use: No Drugs: None Past Social History Note: He identifies as murcia with a boyfriend. He and his boyfriend both tested negative to HIV. - Advance Directive Resuscitation Status: Full Code Family History Family History: Reviewed & Not Pertinent Parental Family History Reviewed: No Children Family History Reviewed: Unknown Sibling(s) Family History Reviewed.: Unknown Medication/Allergy Home Medications: Insulin Lispro [Humalog Insulin (Lispro) 100 unit/mL] See Protocol PUMP DAILY Allergies/Adverse Reactions: acetaminophen [From Vicodin] Allergy (Verified 05/24/17 19:39) Hives hydrocodone [From Vicodin] Allergy (Verified 05/24/17 19:39) Hives ibuprofen Allergy (Verified 05/24/17 19:39) Hives pcn Allergy (Uncoded 05/24/17 19:39) Hives Review of Systems Constitutional: ABSENT: as per HPI, anorexia, chills, fatigue, fever(s), headache(s), night sweats, weakness, weight gain, weight loss, other Eyes: ABSENT: as per HPI, visual disturbances, other Ears: ABSENT: as per HPI, hearing changes, other Nose, Mouth, and Throat: ABSENT: as per HPI, headache(s), mouth pain, sore throat, vertigo, other Cardiovascular: ABSENT: as per HPI, chest pain, dyspnea on exertion, edema, orthropnea, palpitations, other Respiratory: ABSENT: as per HPI, cough, dyspnea, hemoptysis, sputum, other Gastrointestinal: ABSENT: as per HPI, abdominal pain, bloating, coffee ground emesis, constipation, diarrhea, dysphagia, heartburn, hematemesis, hematochezia , melena, nausea, vomiting, other Genitourinary: ABSENT: as per HPI, difficulty urinating, dysuria, hematuria, nocturia, other Musculoskeletal: ABSENT: as per HPI, back pain, deformity, joint swelling, muscle weakness, other Integumentary: PRESENT: as per HPI Neurological: ABSENT: as per HPI, abnormal gait, abnormal movements, abnormal speech, confusion, convulsions, dizziness, focal weakness, frequent falls, lack of coordination, memory loss, numbness, paresthesias, restless legs, syncope, tingling, tremor(s), vertigo, weakness, other Psychiatric: ABSENT: as per HPI, anxiety, depression, hallucinations, homidical ideation, suicidal ideation, other Endocrine: ABSENT: as per HPI, cold intolerance, flushing, heat intolerance, menstrual abnormalities, polydipsia, polyphagia, polyuria, other Hematologic/Lymphatic: ABSENT: as per HPI, easy bleeding, easy bruising, lymphadenopathy, other Physical Exam Vital Signs: Temp Pulse Resp BP Pulse Ox 99.2 F 96 16 114/57 L 98 06/02/17 15:35 06/02/17 15:35 06/02/17 15:35 06/02/17 15:35 06/02/17 15:35 Intake & Output 06/01/17 06/02/17 06/03/17 06:59 06:59 06:59 Intake Total 900 Output Total 410 Balance 490 Weight 57.5 kg General appearance: PRESENT: no acute distress, well-nourished Head exam: PRESENT: atraumatic, normocephalic Eye exam: PRESENT: conjunctiva pink, EOMI, PERRLA Ear exam: PRESENT: normal external ear exam Mouth exam: PRESENT: moist Respiratory exam: PRESENT: clear to auscultation stephanie, unlabored Cardiovascular exam: PRESENT: RRR, +S1, +S2 GI/Abdominal exam: PRESENT: normal bowel sounds, soft Rectal exam: PRESENT: other - Erythematous Swelling in the pilonidal area with purulent drainage from a sinus deep on the right side of the gluteal cleft Neurological exam: PRESENT: alert, awake, oriented to person, oriented to place , oriented to time, oriented to situation, CN II-XII grossly intact Skin exam: PRESENT: other - Erythematous Swelling in the pilonidal area with purulent drainage from a sinus deep on the right side of the gluteal cleft Results Impressions: Abdomen/Pelvis CT 06/01/17 23:30 IMPRESSION: Loculated peripherally enhancing fluid collection with inflammatory changes in the soft tissues posterior to the coccyx, suggestive of pilonidal abscess formation. Assessment & Plan - Diagnosis (1) Pilonidal abscess Is this a current diagnosis for this admission?: Yes Plan: The patient is admitted Keep NPO PLan for an I&D of the abscess. He can have definitive flap closure off midline after the acute infection is controlled. IV zosyn 3.375g q6hr DVT prophylaxis. (2) Type 1 diabetes mellitus Qualifiers: Diabetes mellitus complication status: without complication Qualified Code( s): E10.9 - Type 1 diabetes mellitus without complications Is this a current diagnosis for this admission?: Yes
--- NOTE | 2017-06-02 16:28 | Operative Report ---
Operative Report DATE OF SURGERY: 06/02/17 PREOPERATIVE DIAGNOSIS: Recurrent Pilonidal Abscess POSTOPERATIVE DIAGNOSIS: Recurrent Pilonidal Abscess OPERATION: Incision and Drainage of Recurrent Pilonidal Abscess SURGEON: Layo Lipscomb ANESTHESIA: Spinal TISSUE REMOVED OR ALTERED: None COMPLICATIONS: None ESTIMATED BLOOD LOSS: 20 ml INTRAOPERATIVE FINDINGS: pilonidal abscess with 30ml of pus. abscess cavity about 4.5cm x 3cm. prior surgical scar over the abscess cavity. PROCEDURE: The patient was brought to the operating room and placed on the operating table. spinal anesthesia was administered, he was positioned prone on the table with arms on armboards. The sacrococcygeal area was prepped with betadine and sterile drapes laid. Under sterile aseptic conditions, an incision was made over the fluctuant area. A probe was inserted into the cavity to exit at the draining sinus in the skin just inferior to the cavity thereby connecting the two. A cut down was done onto the probe thus filaying open the sinus track. Cultures were taken and the wound irrigated with saline. A dressing of half inch iodoform gauze, 4x4 and tape was applied. The patient tolerated the procedure well and was taken to the PACU in stable condition.
[2017-06-02] MEDS: PIPERACILLIN SODIUM/TAZOBACTAM 3.375 GM in NORMAL SALINE 100 ML IV SCH ×2 (17:44→23:09)
[2017-06-02] MEDS: DOCUSATE SODIUM 100 MG CAPSULE PO SCH (17:46)
[2017-06-02] MEDS ORDERED: PIPERACILLIN/TAZOBACTAM 3.375 GM VIAL IV SCH (18:00)
[2017-06-02] MEDS ORDERED: KETOROLAC TROMETHAMINE 10 MG TABLET PO PRN (20:59)
[2017-06-02] MEDS ORDERED: KETOROLAC TROMETHAMINE 10 MG TABLET ONE (23:06)
[2017-06-03] MEDS: PIPERACILLIN SODIUM/TAZOBACTAM 3.375 GM in NORMAL SALINE 100 ML IV SCH ×4 (05:04→22:05)
[2017-06-03] MEDS: OXYCODONE HCL IR 5 MG TABLET PO PRN ×2 (05:05→16:35)
[2017-06-03] MEDS ORDERED: INSULIN GLARGINE,HUM.REC.ANLOG 1,000 UNIT/10 ML UNIT SUBCUT ONE (07:47)
[2017-06-03] MEDS: INSULIN LISPRO 100 UNIT/ML 3 ML VIAL SUBCUT PRN ×3 (08:10→18:16)
[2017-06-03] MEDS ORDERED: KETOROLAC TROMETHAMINE INJ/PF 30 MG/1 ML SDV IV PRN (08:33)
[2017-06-03] MEDS: ENOXAPARIN SODIUM INJ 40 MG/0.4 ML DISP.SYRIN SUBCUT SCH (09:24)
[2017-06-03] MEDS: DOCUSATE SODIUM 100 MG CAPSULE PO SCH ×2 (09:27→18:19)
[2017-06-03] MEDS ORDERED: INSULIN LISPRO 100 UNIT/ML 3 ML VIAL SUBCUT SCH (10:00)
[2017-06-03] MEDS ORDERED: ONDANSETRON HCL INJ/PF 4 MG/2 ML SDV IV PRN (13:00)
--- NOTE | 2017-06-03 15:00 | PDOC PROGRESS REPORT ---
Subjective Progress Note for:: 06/03/17 Subjective:: Doing OK, s/p I&D of pilonidal cyst on 06/02. Continues to endorse pain which has decent control current regiment. Denies fevers, chills, CP, SOB, abdominal pain , NV. Would be OK with discharge to home if OK with surgical service. Reason For Visit: TYPE I DIABETIC WITH RECURRENT PILONIDAL ABSCESS Physical Exam Vital Signs: Temp Pulse Resp BP Pulse Ox 98.9 F 99 20 107/62 100 06/03/17 12:03 06/03/17 12:03 06/03/17 12:03 06/03/17 12:03 06/03/17 12:03 Intake & Output 06/02/17 06/03/17 06/04/17 06:59 06:59 06:59 Intake Total 3162 358 Output Total 410 1000 Balance 2752 -642 Weight 57.5 kg 59.6 kg General appearance: PRESENT: no acute distress, thin Head exam: PRESENT: atraumatic Mouth exam: PRESENT: moist Respiratory exam: PRESENT: unlabored Cardiovascular exam: PRESENT: RRR. ABSENT: tachycardia GI/Abdominal exam: PRESENT: soft. ABSENT: tenderness Neurological exam: PRESENT: alert, awake, CN II-XII grossly intact Psychiatric exam: ABSENT: anxious Skin exam: PRESENT: warm Results Impressions: Abdomen/Pelvis CT 06/01/17 23:30 IMPRESSION: Loculated peripherally enhancing fluid collection with inflammatory changes in the soft tissues posterior to the coccyx, suggestive of pilonidal abscess formation. Assessment & Plan - Diagnosis (1) Type 1 diabetes mellitus Qualifiers: Diabetes mellitus complication status: without complication Qualified Code( s): E10.9 - Type 1 diabetes mellitus without complications Is this a current diagnosis for this admission?: Yes Plan: Has insulin pump however no hospital policy for pump management - Continue q6 hours accu checks, LDISS, and Lantus 10U qhs - Given continued elevated BS this AM, gave extra dose of Lantus 10U * 1 dose on 2/4 AM - Counseled about signs and symptoms of hypoglycemia - CTM (2) Pilonidal abscess Is this a current diagnosis for this admission?: Yes Plan: Recurrent issue, s/p I&D on 06/02 - POD #1, doing OK - Blood cultures NGTD at 1 day - Wound culture + for GPC in clusters, await speciation and sensitivities - Currently on Zosyn, would be reasonable to narrow coverage, will defer to surgicalist - Ordered oxycodone 5mg PRN q6 hours for pain control (3) Inadequate pain control Is this a current diagnosis for this admission?: Yes Plan: Better control, continue Oxycodone 5mg q6 hours and Toradol 15mg IV 16 hours - Will avoid IV opioids - Time Time Spent with patient: Less than 15 minutes Medications reviewed and adjusted accordingly: Yes Anticipated discharge: Home Within: within 24 hours Disposition: OK to discharge when cleared by surgical team. Would re-start home insulin pump at discharge
--- NOTE | 2017-06-03 17:17 | PDOC PROGRESS REPORT ---
Subjective Progress Note for:: 06/03/17 Subjective:: POD #1 s/p I&D of pilonidal abscess Is receiving oxycodone for pain control - it's helping. No fever. Reason For Visit: TYPE I DIABETIC WITH RECURRENT PILONIDAL ABSCESS Physical Exam Vital Signs: Temp Pulse Resp BP Pulse Ox 98.9 F 99 20 107/62 100 06/03/17 12:03 06/03/17 12:03 06/03/17 12:03 06/03/17 12:03 06/03/17 12:03 Intake & Output 06/02/17 06/03/17 06/04/17 06:59 06:59 06:59 Intake Total 3162 358 Output Total 410 1000 Balance 2752 -642 Weight 57.5 kg 59.6 kg General appearance: PRESENT: no acute distress Respiratory exam: PRESENT: clear to auscultation stephanie, unlabored Cardiovascular exam: PRESENT: RRR, +S1, +S2 GI/Abdominal exam: PRESENT: normal bowel sounds, soft Rectal exam: PRESENT: other - abscess wound looks clean, non purulent, still has some mild periwound erythema, induration around the wound. Neurological exam: PRESENT: alert, awake, oriented to person, oriented to place , oriented to time, oriented to situation, CN II-XII grossly intact Results Impressions: Abdomen/Pelvis CT 06/01/17 23:30 IMPRESSION: Loculated peripherally enhancing fluid collection with inflammatory changes in the soft tissues posterior to the coccyx, suggestive of pilonidal abscess formation. Assessment & Plan - Diagnosis (1) Pilonidal abscess Is this a current diagnosis for this admission?: Yes Plan: The wound dressing was changed with a new dressing of half inch iodoform gauze, 4x4, ABD and tape. The patient will be discharged tomorrow with the same dressing plan and oral antibiotics. He will f/u with the wound care center as well as [facility] for possible delayed flap closure of the wound off midline. (2) Type 1 diabetes mellitus Qualifiers: Diabetes mellitus complication status: without complication Qualified Code( s): E10.9 - Type 1 diabetes mellitus without complications Is this a current diagnosis for this admission?: Yes - Time Time Spent with patient: 35 or more minutes Total Critical Time (Minutes): 25 Medications reviewed and adjusted accordingly: Yes Anticipated discharge: Home with Homehealth Within: within 24 hours - Plan Summary Plan Summary: For discharge home tomorrow with home health.
--- NOTE | 2017-06-03 17:24 | PDOC DISCHARGE SUMMARY ---
Discharge Summary (SDC) - Discharge Final Diagnosis: pilonidal abscess Date of Surgery: 06/02/17 Discharge Date: 06/04/17 Condition: Stable Treatment or Instructions: Sitz bath daily before dressing change and after every bowel movement. F/U in wound care center F/u in [facility] Ok to shower prn Prescriptions: Docusate Sodium [Colace 100 mg Capsule] 100 mg PO BID #40 capsule Oxycodone HCl [Oxy-Ir 5 mg Tablet] 5 mg PO Q6HP PRN #60 tablet PRN Reason: Referrals: CALVIN ANAYA MD [[facility]] - Discharge Diet: Regular Discharge Activity: Activity As Tolerated Report the Following to Your Physician Immediately: Increase in Pain, Fever over 101 Degrees, Redness, Swelling, Warmth, Drainage-Yellow, Drainage-Foul Smelling
[2017-06-03] MEDS ORDERED: INSULIN GLARGINE,HUM.REC.ANLOG 300 UNIT/3 ML INSULN.PEN SUBCUT SCH (22:00)
[2017-06-04] MEDS: OXYCODONE HCL IR 5 MG TABLET PO PRN ×3 (01:21→15:52)
[2017-06-04] MEDS: PIPERACILLIN SODIUM/TAZOBACTAM 3.375 GM in NORMAL SALINE 100 ML IV SCH ×2 (05:27→11:17)
[2017-06-04] MEDS: INSULIN LISPRO 100 UNIT/ML 3 ML VIAL SUBCUT PRN ×3 (08:12→16:41)
[2017-06-04] MEDS: ENOXAPARIN SODIUM INJ 40 MG/0.4 ML DISP.SYRIN SUBCUT SCH (09:55)
[2017-06-04] MEDS: DOCUSATE SODIUM 100 MG CAPSULE PO SCH (09:56)
--- NOTE | 2017-06-04 12:02 | PDOC PROGRESS REPORT ---
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 Review of systems All organ systems evaluated and negative except as in subjective All significant laboratories have been reviewed Reason For Visit: TYPE I DIABETIC WITH RECURRENT PILONIDAL ABSCESS Physical Exam Vital Signs: Temp Pulse Resp BP Pulse Ox 98.3 F 97 15 108/56 L 100 06/04/17 07:58 06/04/17 07:58 06/04/17 07:58 06/04/17 07:58 06/04/17 07:58 Intake & Output 06/03/17 06/04/17 06/05/17 06:59 06:59 06:59 Intake Total 3162 1564 Output Total 410 1950 Balance 2752 -386 Weight 59.6 kg 59.6 kg General appearance: PRESENT: no acute distress, cooperative, thin Head exam: PRESENT: atraumatic, normocephalic Eye exam: PRESENT: EOMI, PERRLA Ear exam: PRESENT: normal external ear exam Extremities exam: PRESENT: full ROM Musculoskeletal exam: PRESENT: ambulatory Neurological exam: PRESENT: alert, awake, oriented to person, oriented to place , oriented to time, CN II-XII grossly intact Psychiatric exam: PRESENT: appropriate affect, normal mood Skin exam: PRESENT: intact, normal color Results Impressions: Abdomen/Pelvis CT 06/01/17 23:30 IMPRESSION: Loculated peripherally enhancing fluid collection with inflammatory changes in the soft tissues posterior to the coccyx, suggestive of pilonidal abscess formation. Assessment & Plan - Diagnosis (1) Type 1 diabetes mellitus Qualifiers: Diabetes mellitus complication status: without complication Qualified Code( s): E10.9 - Type 1 diabetes mellitus without complications Is this a current diagnosis for this admission?: Yes Plan: A prescription for Lantus 25 units subcu daily was given. He has been advised as to follow-up with his PCP - Time Time Spent with patient: Less than 15 minutes Medications reviewed and adjusted accordingly: Yes Anticipated discharge: Home - My understanding is that patient had been discharged by primary
[2017-06-04 12:31] VITALS: BP 88/40
--- NOTE | 2017-06-05 11:45 | PDOC DISCHARGE SUMMARY ---
General - Admit/Disc Date/PCP Admission Date/Primary Care Provider: 06/02/17 02:29 Discharge Date: 06/04/17 - Discharge Diagnosis (1) Pilonidal abscess Is this a current diagnosis for this admission?: Yes (2) Type 1 diabetes mellitus Is this a current diagnosis for this admission?: Yes - Additional Information Resuscitation Status: Full Code Discharge Diet: Regular Discharge Activity: Activity As Tolerated Prescriptions: Docusate Sodium [Colace 100 mg Capsule] 100 mg PO BID #40 capsule Insulin Glargine,Hum.rec.anlog [Lantus] 25 unit SQ DAILY #1 vial Oxycodone HCl [Oxy-Ir 5 mg Tablet] 5 mg PO Q6HP PRN #60 tablet PRN Reason: Home Medications: Insulin Lispro [Humalog Insulin (Lispro) 100 unit/mL] See Protocol PUMP DAILY Docusate Sodium [Colace 100 mg Capsule] 100 mg PO BID #40 capsule 06/03/17 Oxycodone HCl [Oxy-Ir 5 mg Tablet] 5 mg PO Q6HP PRN #60 tablet 06/03/17 Insulin Glargine,Hum.rec.anlog [Lantus] 25 unit SQ DAILY #1 vial 06/04/17 History of Present Illness History of Present Illness: This is a 21 yo M with prior history of repeated pilonidal abscess drainages over the last couple of years who presents with swelling in the pilonidal area that has been going on for [address] pelvis obtained in the area showed fluid collections in the pilonidal area. He denies fever. He has had repeated drainages in the past but never a definitive pilonidal surgery. He is diabetic. Hospital Course Hospital Course: The patient had incision and drainage of pilonidal abscess with iodoform gauze dressings. He is doing well and is discharged home to continue similar dressing. He will follow up in the outpatient setting to have the wound evaluated for eventual definitive excision of the pilonidal disease and flap closure off-midline. Physical Exam Vital Signs: Temp Pulse Resp BP Pulse Ox 98.3 F 86 16 88/40 L 100 06/04/17 12:29 06/04/17 12:29 06/04/17 12:29 06/04/17 12:29 02/05/18 12:29 Intake & Output 06/04/17 06/05/17 06/06/17 06:59 06:59 06:59 Intake Total 1564 Output Total 1950 Balance -386 Weight 59.6 kg General appearance: PRESENT: no acute distress Head exam: PRESENT: normocephalic Eye exam: PRESENT: conjunctiva pink, EOMI Neck exam: ABSENT: carotid bruit, JVD, lymphadenopathy, thyromegaly Respiratory exam: PRESENT: clear to auscultation stephanie. ABSENT: rales, rhonchi, wheezes Cardiovascular exam: PRESENT: RRR. ABSENT: diastolic murmur, rubs, systolic murmur GI/Abdominal exam: PRESENT: normal bowel sounds, soft. ABSENT: distended, guarding, mass, organolmegaly, rebound, tenderness Rectal exam: PRESENT: other - pilonidal abscess cavity is clean, no pus. Neurological exam: PRESENT: alert, awake, oriented to person, oriented to place , oriented to time, oriented to situation, CN II-XII grossly intact. ABSENT: motor sensory deficit Results Impressions: Abdomen/Pelvis CT 06/01/17 23:30 IMPRESSION: Loculated peripherally enhancing fluid collection with inflammatory changes in the soft tissues posterior to the coccyx, suggestive of pilonidal abscess formation. Plan Discharge Plan: The patient is discharged home with daily dressings of iodoform gauze packs, 4x4 and tape. Will also do Sitz baths before dressings and prn bowel movements. Home on Augmentin 875mg po bid #14 Oxycodone 5mg 1 tab po Q6hr prn #40 for pain Time Spent: Less than 30 Minutes
== END 2017-06-04 17:03 | disposition home or self-care (01) ==
LOC: ER 18:52 → EH 06-02 02:29 → INTOOBSV 06-02 02:29 → 3N 06-02 05:22 → 5 06-03 20:24
PROVIDERS: ATTEND Surgery
PROC: 0H98XZZ Drainage of Buttock Skin, External Approach (ICD-10-PCS; 2017-06-02)
PROC: 0H98XZZ Drainage of Buttock Skin, External Approach (ICD-10-PCS; principal; 2017-06-02 14:00)
DX: L05.01 Pilonidal cyst with abscess (principal); E10.9 Type 1 diabetes mellitus without complications; G89.18 Other acute postprocedural pain; Z96.41 Presence of insulin pump (external) (internal); F17.200 Nicotine dependence, unspecified, uncomplicated
CPT/HCPCS: 99285; 36415; 87040 ×2; 87070; 87205; 82962 ×4; 85025; 87075; 87077; 80053; 87186; 83605; 74177; 10080 ×2; G0378 ×2; A6266; J2250; J1815 ×6; S0119; J3010; J3490 ×3; J1885; J2270; J1650 ×2; J7030; J2704; J2543 ×3; 300

== ENCOUNTER 2017-06-08 16:34 | Emergency (ER) | payer BC ==
--- NOTE | 2017-06-08 19:08 | ER Document Report ---
ED Medical Screen (RME) - General Chief Complaint: Wound Recheck Stated Complaint: FOLLOW UP AFTER SURGERY Time Seen by Provider: 06/08/17 19:02 Mode of Arrival: Ambulatory Information source: Patient Notes: 21-year-old male presents with abscess recheck postsurgical 1 week of the right buttocks, patient has continued pain tenderness I spoke with on-call surgeon who requested CT I have greeted and performed a rapid initial assessment of this patient. A comprehensive ED assessment and evaluation of the patient, analysis of test results and completion of the medical decision making process will be conducted by additional ED providers. PHYSICAL EXAMINATION: GENERAL: Well-appearing, well-nourished and in no acute distress. HEAD: Atraumatic, normocephalic. EYES: Pupils equal round extraocular movements intact, conjunctiva are normal. ENT: Nares patent NECK: Normal range of motion LUNGS: No respiratory distress Musculoskeletal: Normal range of motion NEUROLOGICAL: Normal speech, normal gait. PSYCH: Normal mood, normal affect. SKIN: Incision noted fullness of the right buttocks concerning for retained abscess TRAVEL OUTSIDE OF THE [place] IN LAST 30 DAYS: No - Related Data Allergies/Adverse Reactions: acetaminophen [From Vicodin] Allergy (Verified 05/24/17 19:39) Hives hydrocodone [From Vicodin] Allergy (Verified 05/24/17 19:39) Hives ibuprofen Allergy (Verified 05/24/17 19:39) Hives pcn Allergy (Uncoded 05/24/17 19:39) Hives Past Medical History Endocrine Medical History: Reports: Hx Diabetes Mellitus Type 1 Renal/ Medical History: Denies: Hx Peritoneal Dialysis Psychiatric Medical History: Reports: Hx Depression Past Surgical History: Reports: Hx Oral Surgery - wisdom teeth, Hx Tonsillectomy , Other - Previous I&D of pilonidal abscesses. Excision of perianal warts - Immunizations Hx Diphtheria, Pertussis, Tetanus Vaccination: Yes History of Influenza Vaccine for 01/2017 - 06/2017 Season: No Physical Exam - Vital signs Vitals: Temp Pulse Resp BP Pulse Ox 97.6 F 124 H 16 100/66 99 06/08/17 16:50 06/08/17 16:50 06/08/17 16:50 06/08/17 16:50 06/08/17 16:50 Course - Vital Signs Vital signs: Temp Pulse Resp BP Pulse Ox 97.6 F 124 H 16 100/66 99 06/08/17 16:50 06/08/17 16:50 06/08/17 16:50 06/08/17 16:50 06/08/17 16:50
--- NOTE | 2017-06-08 19:38 | ER Document Report ---
ED General - General Chief Complaint: Wound Recheck Stated Complaint: FOLLOW UP AFTER SURGERY Time Seen by Provider: 06/08/17 19:02 Mode of Arrival: Ambulatory Information source: Patient Notes: 21-year-old male with an abscess of the buttock strain 1 week ago by Surgeon presents with complaints of wound recheck. Patient denies any fevers or chills notes it is twister tender notes the area has gotten smaller TRAVEL OUTSIDE OF THE [place] IN LAST 30 DAYS: No - HPI Onset: Last week Onset/Duration: Persistent, Better Quality of pain: Achy Severity: Mild Pain Level: 1 Associated symptoms: Other Exacerbated by: Denies Relieved by: Denies Similar symptoms previously: Yes Recently seen / treated by doctor: Yes - Related Data Allergies/Adverse Reactions: acetaminophen [From Vicodin] Allergy (Verified 05/24/17 19:39) Hives hydrocodone [From Vicodin] Allergy (Verified 05/24/17 19:39) Hives ibuprofen Allergy (Verified 05/24/17 19:39) Hives pcn Allergy (Uncoded 05/24/17 19:39) Hives Past Medical History - General Information source: Patient - Social History Smoking Status: Current Every Day Smoker Cigarette use (# per day): Yes Chew tobacco use (# tins/day): No Smoking Education Provided: No Frequency of alcohol use: None Drug Abuse: None Family History: Reviewed & Not Pertinent Patient has suicidal ideation: No Patient has homicidal ideation: No Endocrine Medical History: Reports: Hx Diabetes Mellitus Type 1 Renal/ Medical History: Denies: Hx Peritoneal Dialysis Psychiatric Medical History: Reports: Hx Depression Past Surgical History: Reports: Hx Oral Surgery - wisdom teeth, Hx Tonsillectomy , Other - Previous I&D of pilonidal abscesses. Excision of perianal warts - Immunizations Hx Diphtheria, Pertussis, Tetanus Vaccination: Yes Review of Systems - Review of Systems Notes: REVIEW OF SYSTEMS: CONSTITUTIONAL : Denies fever, chills, or sweats. Denies recent illness. EENT: Denies eye, ear, throat, or mouth pain or symptoms. Denies nasal or sinus congestion or discharge. Denies throat, tongue, or mouth swelling or difficulty swallowing. CARDIOVASCULAR: Denies chest pain. Denies palpitations or racing or irregular heart beat. Denies ankle edema. RESPIRATORY: Denies cough, cold, or chest congestion. Denies shortness of breath, difficulty breathing, or wheezing. GASTROINTESTINAL: Denies abdominal pain or distention. Denies nausea, vomiting , or diarrhea. Denies blood in vomitus, stools, or per rectum. Denies black, tarry stools. Denies constipation. GENITOURINARY: Denies difficulty urinating, painful urination, burning, frequency, blood in urine, or discharge. MUSCULOSKELETAL: Denies back or neck pain or stiffness. Denies joint pain or swelling. SKIN: Admits to abscess of the buttocks HEMATOLOGIC : Denies easy bruising or bleeding. LYMPHATIC: Denies swollen, enlarged glands. NEUROLOGICAL: Denies confusion or altered mental status. Denies passing out or loss of consciousness. Denies dizziness or lightheadedness. Denies headache. Denies weakness or paralysis or loss of use of either side. Denies problems with gait or speech. Denies sensory loss, numbness, or tingling. Denies seizures. PSYCHIATRIC: Denies anxiety or stress. Denies depression, suicidal ideation, or homicidal ideation. ALL OTHER SYSTEMS REVIEWED AND NEGATIVE. Dictation was performed using [employer] voice recognition software PHYSICAL EXAMINATION: GENERAL: Well-appearing, well-nourished and in no acute distress. HEAD: Atraumatic, normocephalic. EYES: Pupils equal round and reactive to light, extraocular movements intact, sclera anicteric, conjunctiva are normal. ENT: Nares patent, oropharynx clear without exudates. Moist mucous membranes. NECK: Normal range of motion, supple without lymphadenopathy LUNGS: Breath sounds clear to auscultation bilaterally and equal. No wheezes rales or rhonchi. HEART: Regular rate and rhythm without murmurs ABDOMEN: Soft, nontender, nondistended abdomen. No guarding, no rebound. No masses appreciated. Musculoskeletal: Normal range of motion, no pitting or edema. No cyanosis. NEUROLOGICAL: Cranial nerves grossly intact. Normal speech, normal gait. Normal sensory, motor exams PSYCH: Normal mood, normal affect. SKIN: There is fullness noted of the right buttocks, packing is in place, there is no erythema, no drainage noted Physical Exam - Vital signs Vitals: Temp Pulse Resp BP Pulse Ox 97.6 F 124 H 16 100/66 99 06/08/17 16:50 06/08/17 16:50 06/08/17 16:50 06/08/17 16:50 06/08/17 16:50 Course - Re-evaluation Re-evalutation: 06/08/17 19:42 I did speak with surgeon, initially he did request a CT but was able to evaluate the patient immediately and upon his evaluation and exploration of the wound he notes that the area looks great, he denies any concerns for further drainage. As the at his request I will discharge the patient, given that the patient has no fevers looks well I do agree with the patient's discharge disposition After performing a Medical Screening Examination, I estimate there is LOW risk for OPEN FRACTURE, COMPARTMENT SYNDROME, TENDON RUPTURE, ACUTE NEUROVASCULAR INJURY, or RETAINED FOREIGN BODY, thus I consider the discharge disposition reasonable. Also, there is no evidence or peritonitis, sepsis, or toxicity. I have reevaluated this patient multiple times and no significant life threatening changes are noted. The patient and I have discussed the diagnosis and risks, and we agree with discharging home with close follow-up with the understanding that symptoms and presentations can change. We also discussed returning to the Emergency Department immediately if new or worsening symptoms occur. We have discussed the symptoms which are most concerning (e.g., changing or worsening pain, fever, numbness, weakness, cool or painful digits) that necessitate immediate return. - Vital Signs Vital signs: Temp Pulse Resp BP Pulse Ox 97.6 F 124 H 16 100/66 99 06/08/17 16:50 06/08/17 16:50 06/08/17 16:50 06/08/17 16:50 06/08/17 16:50 Discharge - Discharge Clinical Impression: Encounter for recheck of abscess following incision and drainage Type 1 diabetes mellitus Qualifiers: Diabetes mellitus complication status: with skin complications Diabetes mellitus complication detail: with other skin complication Qualified Code(s): E10.628 - Type 1 diabetes mellitus with other skin complications Condition: Stable Disposition: HOME, SELF-CARE Instructions: Post Incision and Drainage Additional Instructions: You have been evaluated by the surgeon, please follow up with his care plan
[2017-06-08 19:46] VITALS: BP 122/88
== END 2017-06-08 19:54 | disposition home or self-care (01) ==
LOC: ER 16:34
DX: Z48.817 Encounter for surgical aftercare following surgery on the skin and subcutaneous tissue (principal); E10.628 Type 1 diabetes mellitus with other skin complications; L02.31 Cutaneous abscess of buttock; Z88.5 Allergy status to narcotic agent; Z88.6 Allergy status to analgesic agent; Z88.0 Allergy status to penicillin; F17.210 Nicotine dependence, cigarettes, uncomplicated
CPT/HCPCS: 99282

== ENCOUNTER 2017-06-13 08:39 | Emergency (ER) | payer BC ==
--- NOTE | 2017-06-13 10:04 | ER Document Report ---
ED Medical Screen (RME) - General Chief Complaint: Rectal Bleeding Stated Complaint: POSSIBLE ABSCESS BLEEDING Time Seen by Provider: 06/13/17 10:03 Notes: recent surgery by vignesh of pilonidoal cyst. weak, bloody stool, TRAVEL OUTSIDE OF THE [place] IN LAST 30 DAYS: No - Related Data Allergies/Adverse Reactions: acetaminophen [From Vicodin] Allergy (Verified 06/13/17 08:41) Hives hydrocodone [From Vicodin] Allergy (Verified 06/13/17 08:41) Hives ibuprofen Allergy (Verified 06/13/17 08:41) Hives pcn Allergy (Uncoded 05/24/17 19:39) Hives Past Medical History - Social History Frequency of alcohol use: None Drug Abuse: None Endocrine Medical History: Reports: Hx Diabetes Mellitus Type 1 Renal/ Medical History: Denies: Hx Peritoneal Dialysis Psychiatric Medical History: Reports: Hx Depression Past Surgical History: Reports: Hx Oral Surgery - wisdom teeth, Hx Tonsillectomy , Other - Previous I&D of pilonidal abscesses. Excision of perianal warts - Immunizations Hx Diphtheria, Pertussis, Tetanus Vaccination: Yes History of Influenza Vaccine for 01/2017 - 06/2017 Season: No Physical Exam - Vital signs Vitals: Temp Pulse Resp BP Pulse Ox 98.4 F 95 16 122/66 100 06/13/17 08:50 06/13/17 08:50 06/13/17 08:50 06/13/17 08:50 06/13/17 08:50 Course - Vital Signs Vital signs: Temp Pulse Resp BP Pulse Ox 98.4 F 95 16 122/66 100 06/13/17 08:50 06/13/17 08:50 06/13/17 08:50 06/13/17 08:50 06/13/17 08:50
[2017-06-13 10:31] LABS: ABSOLUTE EOSINOPHILS # (AUTO) 0.4 10^3/uL (0.0-0.6); ABSOLUTE LYMPHOCYTES (AUTO) 1.9 10^3/uL (0.5-4.7); ABSOLUTE MONOCYTES (AUTO) 0.3 10^3/uL (0.1-1.4); ABSOLUTE NEUT (AUTO) 2.9 10^3/uL (1.7-8.2); BASOPHILS % (AUTO) 0.5 % (0-2); EOSINOPHILS % (AUTO) 7.9 % (0-6); HEMATOCRIT 40.4 % (37.9-51.0); HEMOGLOBIN 13.8 g/dL (13.5-17.0); LYMPHOCYTES % (AUTO) 33.6 % (13-45); MEAN CORPUSCULAR HGB CONC 34.1 g/dL (32.0-36.0); MEAN CORPUSCULAR VOLUME 94 fl (80-97); MONOCYTES % (AUTO) 6.2 % (3-13); PLATELET COUNT 277 10^3/uL (150-450); RED BLOOD COUNT 4.31 10^6/uL (4.35-5.55); RED CELL DISTRIBUTION WIDTH 12.8 % (11.5-14.0); SEGMENTED NEUTROPHILS % (AUTO) 51.8 % (42-78); TOTAL CELLS COUNTED % (AUTO) 100 %; WHITE BLOOD COUNT 5.6 10^3/uL (4.0-10.5)
[2017-06-13 10:41] LABS: ANION GAP 12 (5-19); BLOOD UREA NITROGEN 15 mg/dL (7-20); CALCIUM 10.2 mg/dL (8.4-10.2); CARBON DIOXIDE 28 mmol/L (22-30); CHLORIDE 98 mmol/L (98-107); POTASSIUM 4.9 mmol/L (3.6-5.0); SODIUM 137.6 mmol/L (137-145)
[2017-06-13 10:51] LABS: GLUCOSE 551 mg/dL (75-110)
--- NOTE | 2017-06-13 12:07 | ER Document Report ---
ED General - General Chief Complaint: Rectal Bleeding Stated Complaint: POSSIBLE ABSCESS BLEEDING Time Seen by Provider: 06/13/17 10:03 TRAVEL OUTSIDE OF THE [place] IN LAST 30 DAYS: No - HPI Patient complains to provider of: Rectal bleeding feeling weak post op evaluation Notes: Patient was seen RME recently had a pilonidal cyst taken care of by our surgical team here. Prior to my evaluation the surgeon had already seen the patient stated the patient otherwise looks normal and can continue with his original discharge be discharged home. Upon my entrance in the room patient is well-dressed states he has no other complaints that his questions have been taken care of. I did inform patient for some laboratory studies blood sugar elevated at 500. Patient otherwise denies any complaints. - Related Data Allergies/Adverse Reactions: acetaminophen [From Vicodin] Allergy (Verified 06/13/17 08:41) Hives hydrocodone [From Vicodin] Allergy (Verified 06/13/17 08:41) Hives ibuprofen Allergy (Verified 06/13/17 08:41) Hives pcn Allergy (Uncoded 05/24/17 19:39) Hives Past Medical History - Social History Smoking Status: Current Every Day Smoker Frequency of alcohol use: None Drug Abuse: None Family History: Reviewed & Not Pertinent Patient has suicidal ideation: No Patient has homicidal ideation: No Endocrine Medical History: Reports: Hx Diabetes Mellitus Type 1 Renal/ Medical History: Denies: Hx Peritoneal Dialysis Psychiatric Medical History: Reports: Hx Depression Past Surgical History: Reports: Hx Oral Surgery - wisdom teeth, Hx Tonsillectomy , Other - Previous I&D of pilonidal abscesses. Excision of perianal warts - Immunizations Hx Diphtheria, Pertussis, Tetanus Vaccination: Yes Review of Systems - Review of Systems Constitutional: Other - Postop complication EENT: No symptoms reported Cardiovascular: No symptoms reported Respiratory: No symptoms reported Gastrointestinal: No symptoms reported Genitourinary: No symptoms reported Male Genitourinary: No symptoms reported Musculoskeletal: No symptoms reported Skin: No symptoms reported Hematologic/Lymphatic: No symptoms reported Neurological/Psychological: No symptoms reported Physical Exam - Vital signs Vitals: Temp Pulse Resp BP Pulse Ox 98.4 F 95 16 122/66 100 06/13/17 08:50 06/13/17 08:50 06/13/17 08:50 06/13/17 08:50 06/13/17 08:50 Interpretation: Normal - General General appearance: Appears well, Alert - Respiratory Respiratory status: No respiratory distress Chest status: Nontender - Cardiovascular Rhythm: Regular Heart sounds: Normal auscultation Murmur: No - Abdominal Inspection: Normal Tenderness: Nontender - Extremities General upper extremity: Normal inspection, Nontender General lower extremity: Normal inspection, Nontender - Neurological Neuro grossly intact: Yes Cognition: Normal - Psychological Associated symptoms: Normal affect, Normal mood - Skin Skin Temperature: Warm Skin Moisture: Dry Skin Color: Normal Course - Re-evaluation Re-evalutation: 06/13/17 15:34 Patient brought himself 10 units of insulin we did recheck his sugar lowered and 400. Patient does state he had an apple and a breakfast of 3 day prior to arrival to the ER. Patient will be discharged home. - Vital Signs Vital signs: Temp Pulse Resp BP Pulse Ox 98.3 F 99 18 142/90 H 99 06/13/17 12:26 06/13/17 12:26 06/13/17 12:26 06/13/17 12:26 06/13/17 12:26 - Laboratory Result Diagrams: 06/13/17 10:10 06/13/17 10:10 Laboratory results interpreted by me: 06/13/17 06/13/17 10:10 10:10 RBC 4.31 L Eosinophils % 7.9 H Glucose 551 H* Discharge - Discharge Clinical Impression: Encounter for recheck of abscess following incision and drainage Post surgical complication Qualifiers: Surgical complication system/body Area: [id number] Postoperative shock type: unspecified shock type Type 1 diabetes mellitus Qualifiers: Diabetes mellitus complication status: with unspecified complications Qualified Code(s): E10.8 - Type 1 diabetes mellitus with unspecified complications Disposition: HOME, SELF-CARE Instructions: Hyperglycemia ([facility]) Additional Instructions: Please continue to follow your last discharge instructions. Please continue to monitor blood sugars please watch her diet return to ER if symptoms worsen.
[2017-06-13 12:32] VITALS: BP 142/90
--- NOTE | 2017-06-13 22:45 | PDOC CONSULTATION ---
Consultation Consult Date: 06/13/17 Attending physician:: CALVIN ANAYA Consult reason:: rectal bleed this morning; history of pilonidal abscess drainage 11 days ago. History of Present Illness History of Present Illness: BETTY SWENSON is a 21 year old male with rectal bleed this morning; he has a history of pilonidal abscess drainage 11 days ago. He had a first bowel movement at 6am that was normal and then a repeat bowel movement 1 hr later was diarrheal and had some blood in it. He also had crampy abdominal pain. I was consulted because of the fear by the ER physician that he was bleeding from his abscess drainage site. Past Medical History Endocrine Medical History: Reports: Diabetes Mellitus Type 1 Psychiatric Medical History: Reports: Depression Past Surgical History Past Surgical History: Reports: Tonsillectomy, Other - Previous I&D of pilonidal abscesses. Excision of perianal warts Social History Smoking Status: Current Every Day Smoker Frequency of Alcohol Use: None Hx Recreational Drug Use: No Drugs: None Family History Family History: Reviewed & Not Pertinent Parental Family History Reviewed: No Children Family History Reviewed: Unknown Sibling(s) Family History Reviewed.: Unknown Medication/Allergy Home Medications: Insulin Lispro [Humalog Insulin (Lispro) 100 unit/mL] See Protocol PUMP DAILY Docusate Sodium [Colace 100 mg Capsule] 100 mg PO BID #40 capsule 06/03/17 Oxycodone HCl [Oxy-Ir 5 mg Tablet] 5 mg PO Q6HP PRN #60 tablet 06/03/17 Insulin Glargine,Hum.rec.anlog [Lantus] 25 unit SQ DAILY #1 vial 06/04/17 Allergies/Adverse Reactions: acetaminophen [From Vicodin] Allergy (Verified 06/13/17 08:41) Hives hydrocodone [From Vicodin] Allergy (Verified 06/13/17 08:41) Hives ibuprofen Allergy (Verified 06/13/17 08:41) Hives pcn Allergy (Uncoded 05/24/17 19:39) Hives Review of Systems All systems: reviewed and no additional remarkable complaints except as stated - rectal bleed and abdominal cramps Physical Exam Vital Signs: Temp Pulse Resp BP Pulse Ox 98.3 F 99 18 142/90 H 99 06/13/17 12:26 06/13/17 12:26 06/13/17 12:26 06/13/17 12:26 06/13/17 12:26 Intake & Output 06/12/17 06/13/17 06/14/17 06:59 06:59 06:59 Weight 56.1 kg General appearance: PRESENT: no acute distress, well-developed, well-nourished Head exam: PRESENT: atraumatic, normocephalic Eye exam: PRESENT: conjunctiva pink, EOMI, PERRLA. ABSENT: scleral icterus Ear exam: PRESENT: normal external ear exam Respiratory exam: PRESENT: clear to auscultation stephanie. ABSENT: rales, rhonchi, wheezes Cardiovascular exam: PRESENT: RRR. ABSENT: diastolic murmur, rubs, systolic murmur GI/Abdominal exam: PRESENT: normal bowel sounds, soft. ABSENT: distended, guarding, mass, organolmegaly, rebound, tenderness Rectal exam: PRESENT: other - pilonidal sbcess wound site is clean and not bleeding. Granulating well. Digital Rectal exam: no blood seen at anal verge, no hemorrhoids. no masses in rectum. gloved finger stained with brown feces, no blood. Neurological exam: PRESENT: alert, awake, oriented to person, oriented to place , oriented to time, oriented to situation, CN II-XII grossly intact. ABSENT: motor sensory deficit Results Laboratory Results: 06/13/17 10:10 06/13/17 10:10 06/13/17 06/13/17 10:10 10:10 WBC 5.6 RBC 4.31 L Hgb 13.8 Hct 40.4 MCV 94 MCH 32.0 MCHC 34.1 RDW 12.8 Plt Count 277 Seg Neutrophils % 51.8 Lymphocytes % 33.6 Monocytes % 6.2 Eosinophils % 7.9 H Basophils % 0.5 Absolute Neutrophils 2.9 Absolute Lymphocytes 1.9 Absolute Monocytes 0.3 Absolute Eosinophils 0.4 Absolute Basophils 0.0 Sodium 137.6 Potassium 4.9 Chloride 98 Carbon Dioxide 28 Anion Gap 12 BUN 15 Creatinine 0.63 Est GFR ( Amer) > 60 Est GFR (Non-Af Amer) > 60 Glucose 551 H* Calcium 10.2 Assessment & Plan - Diagnosis (1) Bloody diarrhea Is this a current diagnosis for this admission?: Yes - Plan Summary Plan Summary: clinically no surgical issues at this time Seems like a case of dysentery - medical evaluation advised.
== END 2017-06-13 12:26 | disposition home or self-care (01) ==
LOC: ER 08:39
DX: K92.1 Melena (principal); R10.84 Generalized abdominal pain; F17.200 Nicotine dependence, unspecified, uncomplicated; E10.9 Type 1 diabetes mellitus without complications; Z79.4 Long term (current) use of insulin; Z88.6 Allergy status to analgesic agent; Z88.0 Allergy status to penicillin
CPT/HCPCS: 36415; 80048; 82962; 85025; 99283

== ENCOUNTER 2017-06-24 21:58 | Emergency (ER) | payer OTHER, BC ==
[2017-06-24] MEDS ORDERED: FENTANYL CITRATE INJ/PF 100 MCG/2 ML AMPUL IV ONE (22:07)
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
[2017-06-24] MEDS ORDERED: ONDANSETRON HCL INJ/PF 4 MG/2 ML SDV IV ONE (22:45)
--- NOTE | 2017-06-24 22:56 | RADIOLOGY REPORT (SQ) ---
EXAM DESCRIPTION: KNEE RIGHT 3 VIEWS COMPLETED DATE/TIME: 06/24/2017 10:32 pm REASON FOR STUDY: trauma COMPARISON: None. NUMBER OF VIEWS: Three views. TECHNIQUE: AP, lateral, and sunrise patella radiographic images acquired of the right knee. LIMITATIONS: None. FINDINGS: MINERALIZATION: Normal. BONES: No acute fracture or dislocation. No worrisome bone lesions. JOINT: No effusion. SOFT TISSUES: No significant soft tissue swelling. No radio-opaque foreign body. OTHER: No other significant finding. IMPRESSION: NO RADIOGRAPHIC EVIDENCE OF ACUTE INJURY. TECHNICAL DOCUMENTATION: JOB ID: [id number] [place]-72 2010 [employer]- All Rights Reserved Reading location - IP/workstation name: [email or web address]
[2017-06-24 23:52] VITALS: BP 134/84
== END 2017-06-24 23:52 | disposition home or self-care (01) ==
LOC: ER 21:58
DX: M25.561 Pain in right knee (principal); F17.200 Nicotine dependence, unspecified, uncomplicated; V87.7XXA Person injured in collision between other specified motor vehicles (traffic), initial encounter
CPT/HCPCS: 99284; 96374; 96375; 82962; 73562; L1830; J3010; J2405

== ENCOUNTER 2018-07-03 22:57 | Emergency (ER) | payer BC ==
[2018-07-03] MEDS ORDERED: IPRATROPIUM/ALBUTEROL 0.5-2.5 MG/3 ML AMPUL NEB ONE (23:37)
[2018-07-04 00:04] LABS: ABSOLUTE EOSINOPHILS # (AUTO) 0.3 10^3/uL (0.0-0.6); ABSOLUTE LYMPHOCYTES (AUTO) 2.4 10^3/uL (0.5-4.7); ABSOLUTE MONOCYTES (AUTO) 0.5 10^3/uL (0.1-1.4); ABSOLUTE NEUT (AUTO) 2.8 10^3/uL (1.7-8.2); BASOPHILS % (AUTO) 0.4 % (0-2); EOSINOPHILS % (AUTO) 4.5 % (0-6); HEMATOCRIT 39.5 % (37.9-51.0); HEMOGLOBIN 13.9 g/dL (13.5-17.0); LYMPHOCYTES % (AUTO) 40.4 % (13-45); MEAN CORPUSCULAR HEMOGLOBIN 33.7 pg (27.0-33.4); MEAN CORPUSCULAR HGB CONC 35.3 g/dL (32.0-36.0); MEAN CORPUSCULAR VOLUME 96 fl (80-97); MONOCYTES % (AUTO) 8.3 % (3-13); PLATELET COUNT 177 10^3/uL (150-450); RED BLOOD COUNT 4.13 10^6/uL (4.35-5.55); RED CELL DISTRIBUTION WIDTH 12.8 % (11.5-14.0); SEGMENTED NEUTROPHILS % (AUTO) 46.4 % (42-78); TOTAL CELLS COUNTED % (AUTO) 100 %; WHITE BLOOD COUNT 5.9 10^3/uL (4.0-10.5)
[2018-07-04 00:19] LABS: ALANINE AMINOTRANSFERASE 33 U/L (21-72); ALBUMIN 4.1 g/dL (3.5-5.0); ALKALINE PHOSPHATASE 103 U/L (38-126); ANION GAP 11 (5-19); ASPARTATE AMINO TRANSFERASE 17 U/L (17-59); BILIRUBIN,DIRECT 0.1 mg/dL (0.0-0.4); BILIRUBIN,TOTAL 0.4 mg/dL (0.2-1.3); BLOOD UREA NITROGEN 19 mg/dL (7-20); CALCIUM 9.7 mg/dL (8.4-10.2); CARBON DIOXIDE 24 mmol/L (22-30); CHLORIDE 101 mmol/L (98-107); GLUCOSE 360 mg/dL (75-110); SODIUM 135.7 mmol/L (137-145); TOTAL PROTEIN 6.6 g/dL (6.3-8.2)
--- NOTE | 2018-07-04 00:29 | RADIOLOGY REPORT (SQ) ---
EXAM DESCRIPTION: XR CHEST 2 VIEWS COMPLETED DATE/TME: 07/03/2018 00:00 CLINICAL HISTORY: 22 years, Male, wheezing COMPARISON: 05/24/2017 chest NUMBER OF VIEWS: 2 TECHNIQUE: Frontal and lateral views of the chest LIMITATIONS: None. FINDINGS: Heart size is normal. Lungs are clear. No pneumothorax IMPRESSION: Negative chest copyright 2010 [employer]- All Rights Reserved
[2018-07-04 00:31] LABS: CREATINE KINASE MB 0.62 ng/mL (<4.55); TROPONIN I < 0.012 ng/mL
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
[2018-07-04 03:26] VITALS: BP 120/83
--- NOTE | 2018-07-04 12:33 | EKG REPORT ---
SEVERITY:- OTHERWISE NORMAL ECG - SINUS RHYTHM APC's. : Confirmed by: Mireya Doss MD 04-Jul-2018 12:32:51
== END 2018-07-04 03:07 | disposition home or self-care (01) ==
LOC: ER 22:57
DX: M94.0 Chondrocostal junction syndrome [Tietze] (principal); E11.9 Type 2 diabetes mellitus without complications; F17.200 Nicotine dependence, unspecified, uncomplicated; Z88.6 Allergy status to analgesic agent; Z88.5 Allergy status to narcotic agent; Z88.0 Allergy status to penicillin
CPT/HCPCS: 93005; 94640; 99285; 36415; 82553; 82550; 85025; 80053; 84484; 85379; 71046; 93010; J7620